=== PATIENT | female | born 1945 | race Caucasian/White ===

== ENCOUNTER 2016-03-30 12:59 | Emergency (ER) | payer MEDICARE, OTHER ==
[2016-03-30 13:27] VITALS: TEMP 97.9
--- NOTE | 2016-03-30 13:40 | ED.PDOC ---
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,no history of fall but felt weak on both legs feels like brick tied around his legs,no dysarthria Timing/Duration: 1-3 hours Severity: moderate Improving Factors: nothing Worsening Factors: nothing Associated Symptoms: other - dizziness,disorientation,feels like passing out Allergies/Adverse Reactions: Allergies NO KNOWN ALLERGY Allergy (Verified 03/30/16 13:25) Home Medications: Ambulatory Orders Atorvastatin Calcium [Lipitor] 10 mg PO DAILY 01/13/14 Celecoxib [Celebrex] 200 mg PO DAILY 01/13/14 Docusate Sodium [Colace] 100 mg PO BID 01/13/14 Baclofen 10 mg PO Q8H PRN #20 tab 08/23/15 Lisinopril 10 mg PO BEDTIME 08/23/15 Metoprolol Succinate [Metoprolol Succinate ER] 100 mg PO DAILY 08/23/15 Aspirin [Baby Aspirin] 81 mg PO DAILY #0 chwtab 02/10/16 Review of Systems - Review of Systems Constitutional: States: no symptoms reported EENTM: States: blurred vision Respiratory: States: no symptoms reported Cardiology: States: no symptoms reported Gastrointestinal/Abdominal: States: no symptoms reported Genitourinary: States: no symptoms reported Musculoskeletal: States: no symptoms reported Skin: States: no symptoms reported Neurological: States: see HPI Endocrine: States: no symptoms reported Hematologic/Lymphatic: States: no symptoms reported Past Medical History (General) - Patient Medical History Hx Seizures: No Hx Stroke: No Hx Dementia: No Hx Asthma: Yes Hx of COPD: No Hx Cardiac Disorders: No Hx Congestive Heart Failure: No Hx Pacemaker: No Hx Hypertension: Yes Hx Thyroid Disease: No Hx Diabetes: No Hx Gastroesophageal Reflux: No Hx Renal Disease: No Hx Cancer: No Hx of HIV: No Hx Hepatitis C: No Hx MRSA: No Other Surgeries:: - Vaccination History Hx Tetanus, Diphtheria Vaccination: No Hx Influenza Vaccination: Yes - 2016 Hx Pneumococcal Vaccination: No - Social History Hx Tobacco Use: No Hx Alcohol Use: No Hx Substance Use: No Hx Substance Use Treatment: No Hx Depression: No Hx Physical Abuse: No Hx Emotional Abuse: No - Activities of Daily Living Patient Lives Alone: No - lives with daughter Grooming Ability: Independent Eating (Feeding) Ability: Independent Toileting Ability: Independent - Female History Patient is a Female of Child Bearing Age (10 -59 yrs old): No Patient : No Family Medical History - Family History Daughter Living Status: Still Living Hx Family Asthma: No Hx Family Congestive Heart Failure: No Hx Family Hypertension: Yes Hx Family Stroke: No Hx Cardiac Disease: No Hx Family Diabetes: No Hx Family Cancer: Yes - liver both brothers Hx Family;Other: LEWY BODY DEMENTIA Physical Exam - Physical Exam General Appearance: Alert, Anxious, No apparent distress Eye Exam: bilateral normal Ears, Nose, Throat: hearing grossly normal, normal ENT inspection, normal pharynx Neck: non-tender, full range of motion, supple, normal inspection Respiratory: chest non-tender, lungs clear, normal breath sounds, no respiratory distress Cardiovascular/Chest: normal peripheral pulses, regular rate, rhythm, no edema, no gallop, no JVD, no murmur Peripheral Pulses: radial,right: 2+, radial,left: 2+ Gastrointestinal/Abdominal: normal bowel sounds, non tender, soft, no organomegaly, no pulsatile mass Back Exam: normal inspection, no CVA tenderness, no vertebral tenderness Extremity: non-tender, normal inspection, no pedal edema Neurologic: alert, motor weakness - left lower extremity 3/5,right lower extremity 4/5 pronator drift negative, sensory deficit - none, disoriented x 3 - to place does not know where he is,time,date, other - Romberg test done after re-exam and was negative DTR: 2+: Patellar, left, Patellar, right Skin Exam: normal color, warm/dry Lymphatic: no adenopathy Progress - Progress Progress: 03/30/16 15:51 She feels better just got scared since one of her sister recently of lewy body dementia,patient knows where she is,knows date and place 03/30/16 16:51 discuss with neurologist suggested ct angio or mri angio to be done as outpatient 03/30/16 17:34 [place] talked to patient that she can be followed up out patient 03/30/16 17:36 Patient stable more alert ,no weakness,speech fluent ,no facial weakness - Results/Orders Results/Orders: 03/30/16 13:32 EKG Assessment ONCE 03/30/16 13:45 EKG STAT Laboratory Results WBC 6.7 K/mm3 (4.8-10.8) 03/30/16 13:40 RBC 5.06 M/mm3 (4.20-5.40) 03/30/16 13:40 Hgb 12.6 gm/dL (12.0-16.0) 03/30/16 13:40 Hct 38.9 % (36.0-47.0) 03/30/16 13:40 MCV 77.0 fl (81.0-99.0) L 03/30/16 13:40 MCH 25.0 pg (27.0-31.0) L 03/30/16 13:40 MCHC 32.5 g/dL (33.0-37.0) L 03/30/16 13:40 RDW 15.8 % (11.5-14.5) H 03/30/16 13:40 Plt Count 245 K/mm3 (130-400) 03/30/16 13:40 MPV 9.1 fl (7.40-10.4) 03/30/16 13:40 Absolute Neuts (auto) 4.00 K/uL (1.8-6.8) 03/30/16 13:40 Absolute Lymphs (auto) 1.60 K/uL (1.0-3.4) 03/30/16 13:40 Absolute Monos (auto) 0.70 K/uL (0.2-0.8) 03/30/16 13:40 Absolute Eos (auto) 0.20 K/uL (0.0-0.4) 03/30/16 13:40 Absolute Basos (auto) 0.10 K/uL (0.0-0.1) 03/30/16 13:40 Neutrophils % 60.0 % (42.0-78.0) 03/30/16 13:40 Lymphocytes % 24.0 % (20.0-50.0) 03/30/16 13:40 Monocytes % 11.2 % (2.0-9.0) H 03/30/16 13:40 Eosinophils % 3.4 % (1.0-5.0) 03/30/16 13:40 Basophils % 1.4 % (0.0-2.0) 03/30/16 13:40 PT 10.8 SECONDS (9.4-12.5) 03/30/16 13:40 INR 0.950 03/30/16 13:40 PTT (SP) 30.3 SECONDS (25.1-36.5) 03/30/16 13:40 Sodium 141 mmol/L (135-145) 03/30/16 13:40 Potassium 4.0 mmol/L (3.6-5.0) 03/30/16 13:40 Chloride 107 mmol/L (101-111) 03/30/16 13:40 Carbon Dioxide 25 mmol/L (-31) 03/30/16 13:40 Anion Gap 13.0 (12-18) 03/30/16 13:40 BUN 15 mg/dL (7-18) 03/30/16 13:40 Creatinine 0.95 mg/dL (0.6-1.3) 03/30/16 13:40 BUN/Creatinine Ratio 15.8 (10-20) 03/30/16 13:40 POC Glucose 84 mg/dL (70-105) 03/30/16 13:31 Random Glucose 111 mg/dL (70-105) H 03/30/16 13:40 Serum Osmolality 282.8 mOsm/L (275-295) 03/30/16 13:40 Calcium 9.4 mg/dL (8.4-10.2) 03/30/16 13:40 Magnesium 2.1 mg/dL (1.8-2.5) 03/30/16 13:40 Total Bilirubin 0.8 mg/dL (0.2-1.0) 03/30/16 13:40 Direct Bilirubin 0.1 mg/dL (0-0.2) 03/30/16 13:40 Indirect Bilirubin 0.7 mg/dL (0.2-0.8) 03/30/16 13:40 AST 25 IU/L (10-42) 03/30/16 13:40 ALT 19 IU/L (10-60) 03/30/16 13:40 Alkaline Phosphatase 151 IU/L (42-121) H 03/30/16 13:40 Creatine Kinase 123 IU/L (26-140) 03/30/16 13:40 CK-MB (CK-2) 3.2 ng/mL (0.0-4.4) 03/30/16 13:40 CK-MB (CK-2) % Not Reportable 03/30/16 13:40 Troponin I 0.02 ng/mL (0.01-0.05) 03/30/16 13:40 Serum Total Protein 7.9 gm/dL (6.4-8.2) 03/30/16 13:40 Albumin 4.2 g/dl (3.2-5.5) 03/30/16 13:40 TSH 6.08 uIU/mL (0.34-5.60) H 03/30/16 13:40 Urine Color Yellow (Yellow) 03/30/16 13:45 Urine Appearance Clear (Clear) 03/30/16 13:45 Urine pH 8.5 (4.5-7.8) H 03/30/16 13:45 Ur Specific [place] 1.015 (1.005-1.030) 03/30/16 13:45 Urine Protein Negative mg/dL 03/30/16 13:45 Urine Glucose (UA) Negative mg/dL (Negative) 03/30/16 13:45 Urine Ketones Negative mg/dL (NEGATIVE) 03/30/16 13:45 Urine Blood Negative (Negative) 03/30/16 13:45 Urine Nitrite Negative 03/30/16 13:45 Urine Bilirubin Negative (NEGATIVE) 03/30/16 13:45 Urine Urobilinogen 0.2 mg/dL (0.2-1.0) 03/30/16 13:45 Ur Leukocyte Esterase Negative (Negative) 03/30/16 13:45 Urine RBC 0 /hpf 03/30/16 13:45 Urine WBC 0 /hpf 03/30/16 13:45 Ur Epithelial Cells 0-1 /hpf 03/30/16 13:45 Urine Bacteria 0 03/30/16 13:45 Urine Opiates Screen Negative ng/mL (1999) 03/30/16 13:40 Urine Barbiturates Negative ng/mL (200) 03/30/16 13:40 Ur Phencyclidine Scrn Negative ng/mL (25) 03/30/16 13:40 U Amphetamin/Meth Scrn Negative ng/mL (1000) 03/30/16 13:40 U Benzodiazepines Scrn Negative ng/mL (200) 03/30/16 13:40 U Cocaine Metab Screen Negative ng/mL (300) 03/30/16 13:40 U Cannabinoids Screen Negative ng/mL (50) 03/30/16 13:40 CT HEAD w/o contrast-no acute infarct or hemorrhage Departure - Departure Clinical Impression: Near syncope, Hypertension, essential Time of Disposition: 17:34 Disposition: Discharge to Home or Self Care Departure Forms: ED Discharge - Pt. Copy, Patient Portal Self Enrollment Referrals: Pawan Peña MD [Primary Care Provider] - 1-2 Weeks Home Medications: Ambulatory Orders Atorvastatin Calcium [Lipitor] 10 mg PO DAILY 01/13/14 Celecoxib [Celebrex] 200 mg PO DAILY 01/13/14 Docusate Sodium [Colace] 100 mg PO BID 01/13/14 Baclofen 10 mg PO Q8H PRN #20 tab 08/23/15 Lisinopril 10 mg PO BEDTIME 08/23/15 Metoprolol Succinate [Metoprolol Succinate ER] 100 mg PO DAILY 08/23/15 Aspirin [Baby Aspirin] 81 mg PO DAILY #0 chwtab 02/10/16 Additional Instructions: RETURN TO EMERGENCY ROOM NEEDED;INCREASE LISINOPRIL 20 mg po at bedtime; INCREASE LIPITOR 20 mg at bedtime follow up with primary MD 04/01/16 patient to call for appt.
--- NOTE | 2016-03-30 14:06 | RAD ---
EXAM DESCRIPTION: XR CHEST 2 VIEWS CLINICAL HISTORY: 71 y/o F, pain COMPARISON: 02/09/2016. TECHNIQUE: Two views of the chest. FINDINGS: The lungs are clear. The heart is at the upper limit of normal in size. There is no pneumothorax or pleural effusion. There is no acute fracture. IMPRESSION: No acute cardiopulmonary abnormality. Electronically signed by: Carlos Eduardo Reina MD 03/30/2016 14:05
--- NOTE | 2016-03-30 14:34 | CT ---
EXAM DESCRIPTION: CT HEAD WITHOUT IV CONTRAST CLINICAL HISTORY: 71 y/o F, near syncope COMPARISON: 02/09/2016. TECHNIQUE: Axial CT images of the brain were obtained without contrast. DLP 773. FINDINGS: There is no acute infarct, hemorrhage, mass, edema, hydrocephalus, or extra-axial fluid collection. The paranasal sinuses and mastoid air cells are clear. There is no acute fracture. IMPRESSION: No acute intracranial abnormality. Electronically signed by: Carlos Eduardo Reina MD 03/30/2016 14:33
[2016-03-30] MEDS: LABETALOL INJ 5 MG/ML VIAL IV ONE ×2 (16:39→16:42)
[2016-03-30 18:10] VITALS: BP 121/61; O2SAT 97
== END 2016-03-30 17:50 | disposition home or self-care (01) ==
LOC: ER 12:59
DX: R55 Syncope and collapse (principal); I10 Essential (primary) hypertension; J45.909 Unspecified asthma, uncomplicated; Z79.899 Other long term (current) drug therapy; Z79.82 Long term (current) use of aspirin
CPT/HCPCS: 70450; 71020; 80048; 80076; 81001; 82550; 82553; 82948; 84443; 84484; 85025; 85610; 85730; 93005; G0479

== ENCOUNTER → 2016-04-01 | Outpatient (CLI) | payer MEDICARE, OTHER | LOC: GMAM 18:45 | PROVIDERS: ATTEND Family Medicine | DX: R94.6 Abnormal results of thyroid function studies (principal) ==

== ENCOUNTER 2016-04-26 15:10 | Emergency (ER) | payer MEDICARE, OTHER ==
--- NOTE | 2016-04-26 15:37 | ED.PDOC ---
History of Present Illness - General Chief Complaint: Syncope/Near Syncope Stated Complaint: passed out Time Seen by Provider: 04/26/16 15:30 Source: patient Additional Information: STATES SHE WOKE UP ON GROUND ON HER RIGHT SIDE. NO C/O'S, STATES SHE DID NOT HURT HERSELF. WAS SEEN FOR SAME 2 MONTHS AGO. SEEN BY NEUROLOGY WITH W/U INCLUDING EEG. - History of Present Illness Timing/Duration: unsure Severity: moderate Improving Factors: nothing Worsening Factors: nothing Associated Symptoms: denies symptoms Allergies/Adverse Reactions: Allergies NO KNOWN ALLERGY Allergy (Verified 04/26/16 15:28) Home Medications: Ambulatory Orders Atorvastatin Calcium [Lipitor] 10 mg PO DAILY 01/13/14 Celecoxib [Celebrex] 200 mg PO DAILY 01/13/14 Docusate Sodium [Colace] 100 mg PO BID 01/13/14 Lisinopril 10 mg PO BEDTIME 08/23/15 Metoprolol Succinate [Metoprolol Succinate ER] 100 mg PO DAILY 08/23/15 Aspirin [Baby Aspirin] 81 mg PO DAILY #0 chwtab 02/10/16 Levetiracetam [Keppra] 500 mg PO BEDTIME 04/26/16 Meclizine HCl 12.5 mg PO BID PRN 04/26/16 Review of Systems - Review of Systems Constitutional: States: no symptoms reported. Denies: chills, fever EENTM: Denies: eye pain, ear pain, throat pain Respiratory: Denies: cough, short of breath, wheezing Cardiology: Denies: chest pain, palpitations Gastrointestinal/Abdominal: Denies: abdominal pain, nausea, vomiting Musculoskeletal: Denies: back pain, neck pain Skin: Denies: change in color, rash Neurological: Denies: headache, numbness, paresthesia, weakness Endocrine: States: no symptoms reported Hematologic/Lymphatic: States: no symptoms reported Past Medical History (General) - Patient Medical History Hx Seizures: No Hx Stroke: No Hx Dementia: No Hx Asthma: Yes Hx of COPD: No Hx Cardiac Disorders: No Hx Congestive Heart Failure: No Hx Pacemaker: No Hx Hypertension: Yes Hx Thyroid Disease: No Hx Diabetes: No Hx Gastroesophageal Reflux: No Hx Renal Disease: No Hx Cancer: No Hx of HIV: No Hx Hepatitis C: No Hx MRSA: No - Vaccination History Hx Tetanus, Diphtheria Vaccination: No Hx Influenza Vaccination: Yes - 2016 Hx Pneumococcal Vaccination: No - Social History Hx Tobacco Use: No Hx Alcohol Use: No Hx Substance Use: No Hx Substance Use Treatment: No Hx Depression: No Hx Physical Abuse: No Hx Emotional Abuse: No - Female History Patient : No Family Medical History - Family History Daughter Living Status: Still Living Hx Family Asthma: No Hx Family Congestive Heart Failure: No Hx Family Hypertension: Yes Hx Family Stroke: No Hx Cardiac Disease: No Hx Family Diabetes: No Hx Family Cancer: Yes - liver, both brothers Hx Family;Other: Alzheimer's DEMENTIA Physical Exam - Physical Exam General Appearance: Alert, Comfortable, No apparent distress Eye Exam: bilateral normal Ears, Nose, Throat: normal ENT inspection, normal pharynx Neck: non-tender, full range of motion, supple, normal inspection Respiratory: lungs clear, normal breath sounds, no respiratory distress Cardiovascular/Chest: regular rate, rhythm, no murmur Gastrointestinal/Abdominal: normal bowel sounds, non tender, soft, no organomegaly Back Exam: normal inspection, no CVA tenderness, no vertebral tenderness Neurologic: neuroscientist II-XII nml as tested, no motor/sensory deficits, alert, normal mood/affect, oriented x 3 Skin Exam: normal color, warm/dry Lymphatic: no adenopathy Progress - Progress Progress: 04/26/16 19:02 TILT NEG, PT HAS BEEN STABLE. - EKG/XRAY/CT EKG: Sinus - RATE 71, NL AXIS, NL INTERVALS, NO ST CHANGES. NO OLD FOR COMPARISON Departure - Departure Clinical Impression: Syncope and collapse Hypertension Qualifiers: Hypertension type: essential hypertension Qualifier Code: (I10) Essential ( primary) hypertension Time of Disposition: 19:04 Disposition: Discharge to Home or Self Care Condition: Good Departure Forms: ED Discharge - Pt. Copy, Patient Portal Self Enrollment Instructions: DI for Syncope in Adults (Fainting) Home Medications: Ambulatory Orders Atorvastatin Calcium [Lipitor] 10 mg PO DAILY 01/13/14 Celecoxib [Celebrex] 200 mg PO DAILY 01/13/14 Docusate Sodium [Colace] 100 mg PO BID 01/13/14 Lisinopril 10 mg PO BEDTIME 08/23/15 Metoprolol Succinate [Metoprolol Succinate ER] 100 mg PO DAILY 08/23/15 Aspirin [Baby Aspirin] 81 mg PO DAILY #0 chwtab 02/10/16 Levetiracetam [Keppra] 500 mg PO BEDTIME 04/26/16 Meclizine HCl 12.5 mg PO BID PRN 04/26/16 Additional Instructions: DRINK PLENTY OF FLUIDS, REST THIS , NOTIFY YOUR DOCTOR (GOLDIE) FRIDAY, RETURN TO ER FOR PROBLEMS/CONCERNS.
[2016-04-26 19:51] VITALS: BP 157/89; TEMP 98.1; O2SAT 100
== END 2016-04-26 19:20 | disposition home or self-care (01) ==
LOC: ER 15:10
DX: R55 Syncope and collapse (principal); I10 Essential (primary) hypertension; J45.909 Unspecified asthma, uncomplicated; Z79.899 Other long term (current) drug therapy; Z79.82 Long term (current) use of aspirin

== ENCOUNTER 2016-06-06 14:19 | Emergency (ER) | payer MEDICARE, OTHER ==
[2016-06-06] MEDS ORDERED: ASPIRIN (CHEWABLE) 81 MG TAB PO ONE (14:33)
--- NOTE | 2016-06-06 14:42 | ED.PDOC ---
History of Present Illness - General Chief Complaint: Chest Pain/NE Stated Complaint: chest pain Time Seen by Provider: 06/06/16 14:32 Source: patient, RN notes reviewed, Vital Signs reviewed Exam Limitations: no limitations - History of Present Illness Initial Comments: Patient reports intermittent, substernal chest pain that started ~3.5 hours ago. Each episode only lasts a few seconds. No radiation, diaphoresis, SOB or nausea with pain. She has had episodes in the past but just thought it was indigestion. Has not been seen for chest pain or cardiac issues. She is currently pain free so will hold off on NTG but still give and additional 243mg of aspirin. Timing/Duration: 1-3 hours Severity/Quality: mild, dull Location: substernal Chest Pain Radiation: no radiation Activities at Onset: rest Prior Chest Pain/Cardiac Workup: no prior cardiac workup Worsening Factors: nothing Nitro Today/Relief: no nitro taken today Aspirin Treatment Today: 81 mg x 1 Associated Symptoms: denies symptoms Allergies/Adverse Reactions: Allergies NO KNOWN ALLERGY Allergy (Verified 04/26/16 15:28) Home Medications: Ambulatory Orders Atorvastatin Calcium [Lipitor] 10 mg PO DAILY 01/13/14 Celecoxib [Celebrex] 200 mg PO DAILY 01/13/14 Docusate Sodium [Colace] 100 mg PO BID 01/13/14 Lisinopril 10 mg PO BEDTIME 08/23/15 Metoprolol Succinate [Metoprolol Succinate ER] 100 mg PO DAILY 08/23/15 Aspirin [Baby Aspirin] 81 mg PO DAILY #0 chwtab 02/10/16 Levetiracetam [Keppra] 500 mg PO BEDTIME 04/26/16 Meclizine HCl 12.5 mg PO BID PRN 04/26/16 Review of Systems - Review of Systems Constitutional: States: no symptoms reported. Denies: chills, diaphoresis, fever, malaise, weakness EENTM: States: no symptoms reported Respiratory: States: no symptoms reported. Denies: cough, short of breath Cardiology: States: chest pain. Denies: edema, palpitations, syncope Gastrointestinal/Abdominal: States: no symptoms reported. Denies: abdominal pain, nausea, vomiting Genitourinary: States: no symptoms reported Musculoskeletal: States: no symptoms reported Skin: States: no symptoms reported Neurological: States: no symptoms reported. Denies: headache Endocrine: States: no symptoms reported Hematologic/Lymphatic: States: no symptoms reported Past Medical History (General) - Patient Medical History Hx Seizures: No Hx Stroke: No Hx Dementia: No Hx Asthma: Yes Hx of COPD: No Hx Cardiac Disorders: No Hx Congestive Heart Failure: No Hx Pacemaker: No Hx Hypertension: Yes Hx Thyroid Disease: No Hx Diabetes: No Hx Gastroesophageal Reflux: No Hx Renal Disease: No Hx Cancer: No Hx of HIV: No Hx Hepatitis C: No Hx MRSA: No - Vaccination History Hx Tetanus, Diphtheria Vaccination: No Hx Influenza Vaccination: Yes - 2016 Hx Pneumococcal Vaccination: No - Social History Hx Tobacco Use: No Hx Alcohol Use: No Hx Substance Use: No Hx Substance Use Treatment: No Hx Depression: No Hx Physical Abuse: No Hx Emotional Abuse: No - Female History Patient : No Family Medical History - Family History Daughter Living Status: Still Living Hx Family Asthma: No Hx Family Congestive Heart Failure: No Hx Family Hypertension: Yes Hx Family Stroke: No Hx Cardiac Disease: No Hx Family Diabetes: No Hx Family Cancer: Yes - liver, both brothers Hx Family;Other: Alzheimer's DEMENTIA Physical Exam - Physical Exam General Appearance: Alert, Comfortable, No apparent distress, Well Developed, Well Groomed, Well Hydrated, Well Nourished Neck: non-tender, full range of motion, supple, normal inspection Respiratory: chest non-tender, lungs clear, normal breath sounds, no respiratory distress, no accessory muscle use Cardiovascular/Chest: normal peripheral pulses, regular rate, rhythm, no edema, no gallop, no JVD, no murmur Peripheral Pulses: posterior tibialis,right: 2+, posterior tibialis,left: 2+ Gastrointestinal/Abdominal: normal bowel sounds, non tender, soft, no organomegaly, no pulsatile mass Extremity: normal range of motion, non-tender, normal inspection, no pedal edema , no calf tenderness Neurologic: no motor/sensory deficits, alert, normal mood/affect, oriented x 3 Skin Exam: normal color Lymphatic: no adenopathy Comments: Vital Signs - 24 hr 06/06/16 06/06/16 14:25 15:15 Temperature 97.0 F L Pulse Rate [RA] 60 60 Respiratory 20 20 Rate Blood Pressure 131/64 131/71 [RIGHT BRACHIAL ] O2 Sat by Pulse 95 96 Oximetry Progress - Progress Progress: 06/06/16 15:40 Initial cardiac workup is normal. Will plan to recheck cardiac enzymes in 2 hours. If normal will d/c home with cardiology follow up. Patient agreeable with plan. 06/06/16 17:26 Second set of cardiac enzymes are normal. Patient has appt with Dr. Rodriguez, Sales Enablement Analyst, on June 27 but advised that she call clinic tomorrow and let them know she was here in the ER for chest pain and maybe they will get her in sooner. - Results/Orders Results/Orders: Laboratory Tests 06/06/16 06/06/16 14:45 16:55 WBC 7.2 RBC 4.77 Hgb 11.9 L Hct 36.6 MCV 76.7 L MCH 24.9 L MCHC 32.6 L RDW 17.0 H Plt Count 224 MPV 8.4 Absolute Neuts (auto) 4.10 Absolute Lymphs (auto) 2.00 Absolute Monos (auto) 0.70 Absolute Eos (auto) 0.30 Absolute Basos (auto) 0.10 Neutrophils % 57.3 Lymphocytes % 27.7 Monocytes % 9.2 H Eosinophils % 4.8 Basophils % 1.0 D-Dimer, Quantitative < 230 Sodium 139 Potassium 4.3 Chloride 106 Carbon Dioxide 27 Anion Gap 10.3 L BUN 15 Creatinine 0.85 BUN/Creatinine Ratio 17.6 Random Glucose 97 Serum Osmolality 278.3 Calcium 9.0 Total Bilirubin 0.9 AST 16 ALT 16 Alkaline Phosphatase 138 H Creatine Kinase 74 68 CK-MB (CK-2) 1.5 1.4 CK-MB (CK-2) % Not Reportable Not Reportable Troponin I < 0.02 < 0.02 Serum Total Protein 7.0 Albumin 3.6 Globulin 3.4 Albumin/Globulin Ratio 1.1 - EKG/XRAY/CT EKG: Sinus, no ST T wave changes Comments: occ PVC's, Rate 60 bpm XRAY: chest - Mild cardiomegaly, o/w nl Departure - Departure Clinical Impression: Atypical chest pain Time of Disposition: 17:28 Disposition: Discharge to Home or Self Care Condition: Good Departure Forms: ED Discharge - Pt. Copy, Patient Portal Self Enrollment Instructions: DI for Atypical Chest Pain Diet: resume usual diet Activity: increase activity as tolerated Referrals: Pawan Peña MD [Primary Care Provider] - 1-2 Weeks DARIAN RODRIGUEZ [Referring] - 1-2 Weeks Home Medications: Ambulatory Orders Atorvastatin Calcium [Lipitor] 10 mg PO DAILY 01/13/14 Celecoxib [Celebrex] 200 mg PO DAILY 01/13/14 Docusate Sodium [Colace] 100 mg PO BID 01/13/14 Lisinopril 10 mg PO BEDTIME 08/23/15 Metoprolol Succinate [Metoprolol Succinate ER] 100 mg PO DAILY 08/23/15 Aspirin [Baby Aspirin] 81 mg PO DAILY #0 chwtab 02/10/16 Levetiracetam [Keppra] 500 mg PO BEDTIME 04/26/16 Meclizine HCl 12.5 mg PO BID PRN 04/26/16
--- NOTE | 2016-06-06 14:55 | RAD ---
EXAM DESCRIPTION: Chest,1 View CLINICAL HISTORY: 71 years Female, chest pain COMPARISON: March 30, 2016 TECHNIQUE: AP portable chest. FINDINGS: Mild cardiomegaly without failure. Lungs are clear. No effusion. IMPRESSION: Mild cardiomegaly Electronically signed by: Kartik Alvarez MD 06/06/2016 2:54 PM CDT
[2016-06-06 15:00] VITALS: TEMP 97
[2016-06-06 18:07] VITALS: BP 129/57; O2SAT 96
== END 2016-06-06 17:40 | disposition home or self-care (01) ==
LOC: ER 14:19
DX: R07.89 Other chest pain (principal); Z79.899 Other long term (current) drug therapy; Z79.82 Long term (current) use of aspirin; J45.909 Unspecified asthma, uncomplicated; I10 Essential (primary) hypertension

== ENCOUNTER → 2016-06-06 | Outpatient (CLI) | payer MEDICARE, OTHER | END | disposition home or self-care (01) | LOC: LAB.O 15:18 | PROVIDERS: ATTEND Psychiatry & Neurology Neurology | DX: G40.209 Localization-related (focal) (partial) symptomatic epilepsy and epileptic syndromes with complex partial seizures, not intractable, without status epilepticus (principal) ==

== ENCOUNTER → 2016-06-20 | Outpatient (CLI) | payer MEDICARE, OTHER | END | disposition home or self-care (01) | LOC: GMAM 14:11 | PROVIDERS: ATTEND Family Medicine | DX: N64.89 Other specified disorders of breast (principal) ==

== ENCOUNTER → 2016-07-04 | Outpatient (CLI) | payer MEDICARE, OTHER ==
--- NOTE | 2016-07-04 17:13 | MAM ---
History: Left bloody nipple discharge. DATE OF SERVICE: 07/04/2016 Services provided: Bilateral full field digital diagnostic mammography. CAD, the images were reviewed with R2 computer aided detection. Directed Limited left breast sonography FINDINGS: Routine and true lateral views are compared with 2013 exam. Scattered glandular parenchymal pattern. No dominant mass, architectural distortion or clustered microcalcification. Bloody nipple discharge is apparent from a solitary duct in the left breast at approximately the 8:00 portion. Sonography is performed. With a rolled nipple there is a focal region of increased vascularity near the tip of the nipple. It is difficult to discern the small structure from the adjacent nipple tissue and estimated transverse diameter of approximately 6 mm. There appears to be a solitary feeding vessel, a finding routinely associated with papillomas although DCIS is in the differential. IMPRESSION: Suspicious exam. Left nipple bloody discharge with 6 mm questioned nipple papilloma. Excision is recommended. Recommendation: Surgical consultation. The findings and recommendations were discussed with the patient today. BIRAD CATEGORY: 4 SUSPICIOUS FINDINGS Electronically signed by: Geetha Laura MD 07/04/2016 5:13 PM CDT
== END | disposition home or self-care (01) ==
LOC: MAMMO 16:18
PROVIDERS: ATTEND Family Medicine
DX: N64.89 Other specified disorders of breast (principal)

== ENCOUNTER → 2016-07-08 | Outpatient (CLI) | payer MEDICARE, OTHER | LOC: GMAM 14:42 | PROVIDERS: ATTEND Family Medicine | DX: E55.9 Vitamin D deficiency, unspecified (principal); D64.9 Anemia, unspecified; M62.81 Muscle weakness (generalized); R53.83 Other fatigue ==

== ENCOUNTER 2016-07-15 08:00 | Day surgery (SDC) | payer MEDICARE, OTHER ==
--- NOTE | 2016-07-10 15:12 | RAD ---
Study: Frontal and Lateral Views of the Chest. Indication: Pre Op for Surg 07/15/16 Comparison: June 06, 2016. Impression: Mild cardiomegaly with minimal interstitial edema. No overt failure. Lungs hyperexpanded. Osteopenia. If this is a new finding, DEXA scan recommended as well as evaluation for possible osteoporosis treatment. Degenerative changes of the spine noted. Electronically signed by: Fam Hathaway MD 07/10/2016 3:11 PM CDT
[2016-07-15] MEDS ORDERED: LIDOCAINE 1% 50 ML VIAL INJ ONE (08:23)
[2016-07-15] MEDS ORDERED: SODIUM BICARBONATE VIAL 50 MEQ/50 ML VIAL ONE (08:23)
[2016-07-15] MEDS ORDERED: LACTATED RINGERS 1,000 ML ONE (08:29)
[2016-07-15] MEDS ORDERED: METOPROLOL SUCCINATE XL 100 MG TAB PO ONE (08:45)
[2016-07-15] MEDS ORDERED: fentaNYL CITRATE INJ 50 MCG/ML AMP ONE (08:57)
[2016-07-15] MEDS ORDERED: MIDAZOLAM INJ 5 MG/5 ML VIAL ONE (08:57)
[2016-07-15 10:47] VITALS: BP 145/83; TEMP 97.4; O2SAT 99
[2016-07-15] MEDS ORDERED: raNITIdine HCL INJ 25 MG/ML VIAL IV ONE (12:00)
[2016-07-15] MEDS ORDERED: PROPOFOL 200 MG/20 ML VIAL IV ONE (12:00)
[2016-07-15] MEDS ORDERED: LIDOCAINE 1% 10 ML VIAL INJ ONE (12:00)
--- NOTE | 2016-07-15 13:26 | OP ---
DATE OF PROCEDURE: 07/15/16 PREOPERATIVE DIAGNOSIS: 1. Left breast discharge with abnormal mammogram. POSTOPERATIVE DIAGNOSIS: 1. Left breast discharge with abnormal mammogram. PROCEDURE: 1. Exploration, left breast duct and excision of subareolar mass. SURGEON: Braxton Santos MD. HANGAR ATTENDANT: None. ANESTHESIA: Local infiltration of 1% lidocaine with bicarb and IV sedation by Anesthesia. INDICATION: The patient is a 71-year-old female who had noticed a sometimes bloody discharge from her left nipple at approximately the 8 o'clock position. Workup revealed a subareolar mass. She was brought to the Surgical Suite today for exploration of the duct and indicated procedures. FINDINGS: There was a mass intimately associated with the areola. This was excised with some of the overlying skin. Pathology is pending. No other mass was identified. PROCEDURE: After adequate sedation was performed, the patient was prepped and draped in the usual sterile manner. Surgical time-out was taken. A periareolar incision was then designed with a marking pen, then local infiltration of anesthesia was obtained. The skin was incised with a sharp knife and dissection was carried down through the skin and subcutaneous tissue using electrocautery. The areola was then elevated medially until the mass was identified. It was then excised circumferentially using electrocautery and sharp dissection which did include taking some of the skin of the nipple. The specimen was excised and sent for pathologic evaluation. The wound was then irrigated with saline. Hemostasis was obtained with electrocautery. When hemostasis was noted to be adequate, the skin of the nipple was reapproximated with interrupted 4-0 Nylon vertical mattress sutures and the skin incision was closed likewise. Sterile pressure dressing was applied. The patient tolerated the procedure well. The patient was taken to the Recovery Room in good and stable condition. Estimated blood loss was less than 25 mL. All sponge, needle and instrument counts were correct. #[id number] [facility]
== END 2016-07-15 10:40 | disposition home or self-care (01) ==
LOC: AMB 08:00
PROVIDERS: ATTEND Surgery
DX: D24.2 Benign neoplasm of left breast (principal); N64.52 Nipple discharge; R92.8 Other abnormal and inconclusive findings on diagnostic imaging of breast; I25.10 Atherosclerotic heart disease of native coronary artery without angina pectoris; I35.1 Nonrheumatic aortic (valve) insufficiency; I10 Essential (primary) hypertension; Z79.82 Long term (current) use of aspirin; Z79.899 Other long term (current) drug therapy
CPT/HCPCS: 00400; 19120; 36415; 71020; 80048; 81001; 87086; 88305; J2250; J2780; J3010; J3490; J7120

== ENCOUNTER 2016-07-24 16:32 | Emergency (ER) | payer MEDICARE, OTHER ==
[2016-07-24 17:01] VITALS: O2SAT 98
[2016-07-24] MEDS ORDERED: SODIUM CHLORIDE 0.9% 1000ML 1,000 ML IVS ONE (18:55)
--- NOTE | 2016-07-24 19:12 | ED.PDOC ---
History of Present Illness - General Chief Complaint: GI Problem Stated Complaint: diarrhea Time Seen by Provider: 07/24/16 17:50 Source: patient Exam Limitations: no limitations - History of Present Illness Initial Comments: Patient presents with multiple episodes of non-bloody diarrhea since this morning. No N/V. Has been able to take in small amounts of food and water. No similarly sick contacts. No abdomnal pain nor fever. No other complaints. Timing/Duration: other - 10 hours Severity: moderate Improving Factors: nothing Worsening Factors: nothing Associated Symptoms: denies symptoms Allergies/Adverse Reactions: Allergies NO KNOWN ALLERGY Allergy (Verified 07/24/16 17:01) Home Medications: Ambulatory Orders Atorvastatin Calcium [Lipitor] 10 mg PO QPM 01/13/14 Docusate Sodium [Colace] 100 mg PO BID 01/13/14 Lisinopril 10 mg PO DAILY@0700 08/23/15 Metoprolol Succinate [Metoprolol Succinate ER] 100 mg PO DAILY@0700 08/23/15 Aspirin [Baby Aspirin] 81 mg PO DAILY #0 chwtab 02/10/16 Levetiracetam [Keppra] 500 mg PO BID 04/26/16 Meclizine HCl 12.5 mg PO BID PRN 04/26/16 Oxcarbazepine [Trileptal] 150 mg PO BID 07/10/16 Sulfa/Trimeth 800/160 (Ds) Tab [Bactrim DS Tab] 1 ea PO BID #6 tab 07/24/16 Review of Systems - Review of Systems Constitutional: States: no symptoms reported EENTM: States: no symptoms reported Respiratory: States: no symptoms reported Cardiology: States: no symptoms reported Gastrointestinal/Abdominal: States: see HPI Genitourinary: States: no symptoms reported Musculoskeletal: States: no symptoms reported Skin: States: no symptoms reported Neurological: States: no symptoms reported Endocrine: States: no symptoms reported Hematologic/Lymphatic: States: no symptoms reported Past Medical History (General) - Patient Medical History Hx Seizures: Yes Hx Stroke: No Hx Dementia: No Hx Asthma: Yes Hx of COPD: No Hx Cardiac Disorders: No Hx Congestive Heart Failure: No Hx Pacemaker: No Hx Hypertension: Yes Hx Thyroid Disease: No Hx Diabetes: No Hx Gastroesophageal Reflux: No Hx Renal Disease: No Hx Cancer: No Hx of HIV: No Hx Hepatitis C: No Hx MRSA: No Surgical History: other - Vaccination History Hx Tetanus, Diphtheria Vaccination: No Hx Influenza Vaccination: Yes - 2016 Hx Pneumococcal Vaccination: No - Social History Hx Tobacco Use: No Hx Alcohol Use: No Hx Substance Use: No Hx Substance Use Treatment: No Hx Depression: No Hx Physical Abuse: No Hx Emotional Abuse: No - Activities of Daily Living Hospice Agency (if applicable):: None - Female History Patient is a Female of Child Bearing Age (10 -59 yrs old): No Patient : No Family Medical History - Family History Daughter Living Status: Still Living Hx Family Asthma: No Hx Family Congestive Heart Failure: No Hx Family Hypertension: Yes Hx Family Stroke: No Hx Cardiac Disease: No Hx Family Diabetes: No Hx Family Cancer: Yes - liver, both brothers Hx Family;Other: Alzheimer's DEMENTIA Physical Exam - Physical Exam General Appearance: Alert Respiratory: lungs clear Cardiovascular/Chest: regular rate, rhythm Gastrointestinal/Abdominal: normal bowel sounds, non tender, soft Extremity: non-tender, normal inspection, no pedal edema Skin Exam: normal color Lymphatic: no adenopathy Departure - Departure Clinical Impression: Diarrhea, Urinary tract infection Disposition: Discharge to Home or Self Care Condition: Good Departure Forms: ED Discharge - Pt. Copy, Patient Portal Self Enrollment Diet: resume usual diet Activity: increase activity as tolerated Referrals: Pawan Peña MD [Primary Care Provider] - 1-2 Weeks Prescriptions: Sulfa/Trimeth 800/160 (Ds) Tab [Bactrim DS Tab] 1 ea PO BID #6 tab Home Medications: Ambulatory Orders Atorvastatin Calcium [Lipitor] 10 mg PO QPM 01/13/14 Docusate Sodium [Colace] 100 mg PO BID 01/13/14 Lisinopril 10 mg PO DAILY@0700 08/23/15 Metoprolol Succinate [Metoprolol Succinate ER] 100 mg PO DAILY@0700 08/23/15 Aspirin [Baby Aspirin] 81 mg PO DAILY #0 chwtab 02/10/16 Levetiracetam [Keppra] 500 mg PO BID 04/26/16 Meclizine HCl 12.5 mg PO BID PRN 04/26/16 Oxcarbazepine [Trileptal] 150 mg PO BID 07/10/16 Sulfa/Trimeth 800/160 (Ds) Tab [Bactrim DS Tab] 1 ea PO BID #6 tab 07/24/16 Additional Instructions: Increase oral fluids. Take prescription as directed. Follow up with your regular doctor if diarrhea lasts more than 6 days.
[2016-07-24] MEDS ORDERED: ONDANSETRON INJ 4 MG/2 ML VIAL IV ONE (19:22)
[2016-07-24 22:37] VITALS: BP 135/80; TEMP 98.4
== END 2016-07-24 23:05 | disposition home or self-care (01) ==
LOC: ER 16:32
DX: R19.7 Diarrhea, unspecified (principal); N39.0 Urinary tract infection, site not specified; I10 Essential (primary) hypertension; J45.909 Unspecified asthma, uncomplicated; Z79.899 Other long term (current) drug therapy; Z79.82 Long term (current) use of aspirin
CPT/HCPCS: 36415; 80053; 81001; 85025; 87086; J2405; J7030

== ENCOUNTER 2016-07-27 08:59 | Emergency (ER) | payer MEDICARE, OTHER ==
--- NOTE | 2016-07-27 09:13 | ED.PDOC ---
History of Present Illness - General Chief Complaint: General Stated Complaint: feels ill Time Seen by Provider: 07/27/16 09:10 Source: patient, family, other - neighbor Additional Information: Pt lives alone. Her daughter lives nearby and she has a neighbor who she called today for help. Her daughter brought her to the ER 3 days ago. Pt with vague complaints of feeling ill, feeling like she is going to have a "seizure". Per daughter, Pt gets spells about once a month - most recent was 4 days ago. Typically Pt will faint/syncopize. This has been going on for several years. There is no known precipitating factor. She sees a Neurologist (Dr. Larsen) and she is prescribed Keppra and Tileptal. Pt reports diarrhea for the past 3 days, most recent bout was yesterday morning. She took Imodium with good relief for that episode. Pt reports she thinks she may have another bout of diarrhea coming soon. She does have moderate to hyperactive bowel sounds. Pt denies abdominal pain. She does report some sensation of shortness of breath , but she does not appear to be in respiratory distress. I asked patient what her goals were for this ER Visit - she said "I don't know. Make me feel better." - History of Present Illness Timing/Duration: other - 3 to 4 days Severity: moderate Improving Factors: medication - Imodium helped with diarrhea yesterday Worsening Factors: nothing Associated Symptoms: shortness of breath, weakness, other - diarrhea Allergies/Adverse Reactions: Allergies NO KNOWN ALLERGY Allergy (Verified 07/24/16 17:01) Home Medications: Ambulatory Orders Atorvastatin Calcium [Lipitor] 10 mg PO QPM 01/13/14 Docusate Sodium [Colace] 100 mg PO BID 01/13/14 Lisinopril 10 mg PO DAILY@0700 08/23/15 Metoprolol Succinate [Metoprolol Succinate ER] 100 mg PO DAILY@0700 08/23/15 Aspirin [Baby Aspirin] 81 mg PO DAILY #0 chwtab 02/10/16 Levetiracetam [Keppra] 500 mg PO BID 04/26/16 Meclizine HCl 12.5 mg PO BID PRN 04/26/16 Oxcarbazepine [Trileptal] 150 mg PO BID 07/10/16 Sulfa/Trimeth 800/160 (Ds) Tab [Bactrim DS Tab] 1 ea PO BID #6 tab 07/24/16 Review of Systems - Review of Systems Constitutional: States: weakness EENTM: States: no symptoms reported Respiratory: States: short of breath Cardiology: States: no symptoms reported Gastrointestinal/Abdominal: States: see HPI, diarrhea Genitourinary: States: no symptoms reported Musculoskeletal: States: no symptoms reported Skin: States: no symptoms reported Neurological: States: see HPI - - Pt states she feels like she is going to have a seizure Endocrine: States: no symptoms reported Hematologic/Lymphatic: States: no symptoms reported Past Medical History (General) - Patient Medical History Hx Seizures: Yes Hx Stroke: No Hx Dementia: No Hx Asthma: Yes Hx of COPD: No Hx Cardiac Disorders: No Hx Congestive Heart Failure: No Hx Pacemaker: No Hx Hypertension: Yes Hx Thyroid Disease: No Hx Diabetes: No Hx Gastroesophageal Reflux: No Hx Renal Disease: No Hx Cancer: No Hx of HIV: No Hx Hepatitis C: No Hx MRSA: No - Vaccination History Hx Tetanus, Diphtheria Vaccination: No Hx Influenza Vaccination: Yes - 2016 Hx Pneumococcal Vaccination: No - Social History Hx Tobacco Use: No Hx Alcohol Use: No Hx Substance Use: No Hx Substance Use Treatment: No Hx Depression: No Hx Physical Abuse: No Hx Emotional Abuse: No - Female History Patient : No Family Medical History - Family History Daughter Living Status: Still Living Hx Family Asthma: No Hx Family Congestive Heart Failure: No Hx Family Hypertension: Yes Hx Family Stroke: No Hx Cardiac Disease: No Hx Family Diabetes: No Hx Family Cancer: Yes - liver, both brothers Hx Family;Other: Alzheimer's DEMENTIA Physical Exam - Physical Exam General Appearance: Alert, Comfortable - , but a little anxious with history and exam. No anxiety when left alone resting in stretcher., No apparent distress , Obese Eye Exam: bilateral normal Ears, Nose, Throat: hearing grossly normal, normal ENT inspection, normal pharynx Neck: non-tender, full range of motion, supple, normal inspection Respiratory: chest non-tender, lungs clear, normal breath sounds, no respiratory distress, no accessory muscle use Cardiovascular/Chest: normal peripheral pulses, regular rate, rhythm, no edema Gastrointestinal/Abdominal: non tender, soft, abnormal bowel sounds - moderately increased Back Exam: normal inspection, no CVA tenderness Extremity: normal range of motion, non-tender, normal inspection 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 I will assess for electrolyte abnormalities with blood and urine studies and compare with previous studies to assess for interval change. Will treat diarrhea with Imodium and obtain stool studies. 07/27/16 10:21 Pt states she feels better after Imodium. She was not able to give a stool sample. Her urinalysis is potentially suggestive of mild UTI; Urine Culture is pending. - Results/Orders Results/Orders: 07/27/16 09:12 EKG Assessment ONCE 07/27/16 09:15 EKG STAT 07/27/16 09:35 STOOL CULTURE Stat 07/27/16 09:36 CLOSTRIDIUM DIFFICILE AG/TOXIN Stat 07/27/16 09:57 URINE CULTURE W/COLONY COUNT Stat Laboratory Results - last 24 hr 07/27/16 07/27/16 07/27/16 09:27 09:27 09:27 WBC 5.2 RBC 4.65 Hgb 11.8 L Hct 36.0 MCV 77.4 L MCH 25.3 L MCHC 32.7 L RDW 16.5 H Plt Count 219 MPV 8.4 Absolute Neuts (auto) 2.80 Absolute Lymphs (auto) 1.50 Absolute Monos (auto) 0.60 Absolute Eos (auto) 0.30 Absolute Basos (auto) 0.00 Neutrophils % 54.2 Lymphocytes % 28.6 Monocytes % 11.2 H Eosinophils % 5.1 H Basophils % 0.9 D-Dimer, Quantitative Sodium 139 Potassium 3.5 L Chloride 112 H Carbon Dioxide 19 L Anion Gap 11.5 L BUN 14 Creatinine 0.98 BUN/Creatinine Ratio 14.3 Random Glucose 104 Serum Osmolality 278.3 Calcium 8.7 Phosphorus 3.1 Magnesium 1.8 Total Bilirubin 0.5 AST 25 ALT 23 Alkaline Phosphatase 127 H Serum Total Protein 6.9 Albumin 3.5 Globulin 3.4 Albumin/Globulin Ratio 1.0 L TSH 8.74 H Free T4 Free T3 pg/mL Urine Color Urine Appearance Urine pH Ur Specific [place] Urine Protein Urine Glucose (UA) Urine Ketones Urine Blood Urine Nitrite Urine Bilirubin Urine Urobilinogen Ur Leukocyte Esterase Urine RBC Urine WBC Ur Epithelial Cells Urine Bacteria 0507/27/16 07/27/16 09:27 09:57 10:33 WBC RBC Hgb Hct MCV MCH MCHC RDW Plt Count MPV Absolute Neuts (auto) Absolute Lymphs (auto) Absolute Monos (auto) Absolute Eos (auto) Absolute Basos (auto) Neutrophils % Lymphocytes % Monocytes % Eosinophils % Basophils % D-Dimer, Quantitative < 230 Sodium Potassium Chloride Carbon Dioxide Anion Gap BUN Creatinine BUN/Creatinine Ratio Random Glucose Serum Osmolality Calcium Phosphorus Magnesium Total Bilirubin AST ALT Alkaline Phosphatase Serum Total Protein Albumin Globulin Albumin/Globulin Ratio TSH Free T4 0.73 Free T3 pg/mL Urine Color Yellow Urine Appearance Clear Urine pH 5.5 Ur Specific [place] 1.025 Urine Protein Negative Urine Glucose (UA) Negative Urine Ketones Negative Urine Blood Trace-lysed H Urine Nitrite Negative Urine Bilirubin Negative Urine Urobilinogen 0.2 Ur Leukocyte Esterase Small H Urine RBC 0-1 Urine WBC 3-5 H Ur Epithelial Cells 0 Urine Bacteria Rare 07/27/16 10:36 WBC RBC Hgb Hct MCV MCH MCHC RDW Plt Count MPV Absolute Neuts (auto) Absolute Lymphs (auto) Absolute Monos (auto) Absolute Eos (auto) Absolute Basos (auto) Neutrophils % Lymphocytes % Monocytes % Eosinophils % Basophils % D-Dimer, Quantitative Sodium Potassium Chloride Carbon Dioxide Anion Gap BUN Creatinine BUN/Creatinine Ratio Random Glucose Serum Osmolality Calcium Phosphorus Magnesium Total Bilirubin AST ALT Alkaline Phosphatase Serum Total Protein Albumin Globulin Albumin/Globulin Ratio TSH Free T4 Free T3 pg/mL 2.97 Urine Color Urine Appearance Urine pH Ur Specific [place] Urine Protein Urine Glucose (UA) Urine Ketones Urine Blood Urine Nitrite Urine Bilirubin Urine Urobilinogen Ur Leukocyte Esterase Urine RBC Urine WBC Ur Epithelial Cells Urine Bacteria 07/27/16 07/27/16 07/27/16 09:03 09:23 10:24 Temperature 97.0 F L Pulse Rate [ 68 65 61 apical] Respiratory 22 18 16 Rate Blood Pressure 153/86 149/74 135/74 [left brachial] O2 Sat by Pulse 100 100 100 Oximetry 07/27/16 11:00 Temperature Pulse Rate [ 63 apical] Respiratory 18 Rate Blood Pressure 152/77 [left brachial] O2 Sat by Pulse 100 Oximetry - EKG/XRAY/CT EKG: Sinus - NSR 67 bpm, no ST Elevation Departure - Departure Clinical Impression: Urine leukocytes, Diarrhea, Subclinical hypothyroidism Anemia Qualifiers: Anemia type: unspecified type Qualified Code(s): D64.9 - Anemia, unspecified Time of Disposition: 11:30 Disposition: Discharge to Home or Self Care Condition: Fair Departure Forms: ED Discharge - Pt. Copy, Patient Portal Self Enrollment Referrals: Pawan Peña MD [Primary Care Provider] - 1-5 Days Home Medications: Ambulatory Orders Atorvastatin Calcium [Lipitor] 10 mg PO QPM 01/13/14 Docusate Sodium [Colace] 100 mg PO BID 01/13/14 Lisinopril 10 mg PO DAILY@0700 08/23/15 Metoprolol Succinate [Metoprolol Succinate ER] 100 mg PO DAILY@0700 08/23/15 Aspirin [Baby Aspirin] 81 mg PO DAILY #0 chwtab 02/10/16 Levetiracetam [Keppra] 500 mg PO BID 04/26/16 Meclizine HCl 12.5 mg PO BID PRN 04/26/16 Oxcarbazepine [Trileptal] 150 mg PO BID 07/10/16 Sulfa/Trimeth 800/160 (Ds) Tab [Bactrim DS Tab] 1 ea PO BID #6 tab 07/24/16 Additional Instructions: You may benefit from antibiotic. I recommend awaiting the Urine Culture results. Call for results on Friday (07/29/16) and/or make an appointment to see Dr. Peña so he can go over the results with you. Also, discuss the diagnosis of subclinical hypothyroidism with Dr. Peña. Typically, it is not treated unless the TSH is greater than 10 mU/L. Try to collect a stool sample and bring it into the lab. Continue to try and consume green leafy vegetables. Return to ER if condition worsens.
[2016-07-27 09:19] VITALS: TEMP 97
[2016-07-27] MEDS ORDERED: LOPERAMIDE CAP 2 MG CAP PO ONE (09:36)
[2016-07-27 11:34] VITALS: BP 116/72; O2SAT 96
== END 2016-07-27 11:35 | disposition home or self-care (01) ==
LOC: ER 08:59
DX: R19.7 Diarrhea, unspecified (principal); R82.99 Other abnormal findings in urine; E02 Subclinical iodine-deficiency hypothyroidism; D64.9 Anemia, unspecified; G40.909 Epilepsy, unspecified, not intractable, without status epilepticus; J44.9 Chronic obstructive pulmonary disease, unspecified; I10 Essential (primary) hypertension; Z79.899 Other long term (current) drug therapy; Z79.82 Long term (current) use of aspirin

== ENCOUNTER 2016-07-30 13:58 | Emergency (ER) | payer MEDICARE, OTHER ==
--- NOTE | 2016-07-30 14:05 | ED.PDOC ---
History of Present Illness - General Stated Complaint: dizziness Time Seen by Provider: 07/30/16 14:03 Source: patient, RN notes reviewed, EMS notes reviewed Exam Limitations: no limitations - History of Present Illness Initial Comments: Agnes Abdi 71 y/o female with history of hypertension ,sz disorder stated that while she was walking outside to dump her garbage in the dumpster she got lightheaded fell forward but able to brace her fall with both forearms passerby noticed what happened and alerted her neighbor and helped her walk to her house.EMS was called was placed on monitor was found to be bradycardic hr-44 given 2 doses of atropine.Then was brought efren to [facility] ER.No chest pains,no nausea or vomiting. Timing/Duration: 1-3 hours Severity: moderate Improving Factors: nothing Worsening Factors: nothing Associated Symptoms: other - abrasion superficial both forearms Allergies/Adverse Reactions: Allergies NO KNOWN ALLERGY Allergy (Verified 07/30/16 14:12) Home Medications: Ambulatory Orders Atorvastatin Calcium [Lipitor] 10 mg PO QPM 01/13/14 Lisinopril 10 mg PO DAILY@0700 08/23/15 Metoprolol Succinate [Metoprolol Succinate ER] 100 mg PO DAILY@0700 08/23/15 Levetiracetam [Keppra] 500 mg PO BID 04/26/16 Oxcarbazepine [Trileptal] 150 mg PO BID 07/10/16 Aspirin [Donte Low Dose] 81 mg PO DAILY 07/30/16 Ergocalciferol [Vitamin D] 50,000 unit PO WKLY 07/30/16 Review of Systems - Review of Systems Constitutional: States: no symptoms reported EENTM: States: no symptoms reported Respiratory: States: no symptoms reported Cardiology: States: no symptoms reported Gastrointestinal/Abdominal: States: no symptoms reported Genitourinary: States: no symptoms reported Musculoskeletal: States: no symptoms reported Skin: States: see HPI, other - superficial abrasion Neurological: States: seizure - disorder, other - lightheaded Endocrine: States: no symptoms reported Hematologic/Lymphatic: States: no symptoms reported Past Medical History (General) - Patient Medical History Hx Seizures: Yes Hx Stroke: No Hx Dementia: No Hx Asthma: Yes Hx of COPD: No Hx Cardiac Disorders: No Hx Congestive Heart Failure: No Hx Pacemaker: No Hx Hypertension: Yes Hx Thyroid Disease: No Hx Diabetes: No Hx Gastroesophageal Reflux: No Hx Renal Disease: No Hx Cancer: No Hx of HIV: No Hx Hepatitis C: No Hx MRSA: No Surgical History: other - - Vaccination History Hx Tetanus, Diphtheria Vaccination: No Hx Influenza Vaccination: Yes - 2016 Hx Pneumococcal Vaccination: No - Social History Hx Tobacco Use: No Hx Alcohol Use: No Hx Substance Use: No Hx Substance Use Treatment: No Hx Depression: No Hx Physical Abuse: No Hx Emotional Abuse: No - Activities of Daily Living Grooming Ability: Independent Eating (Feeding) Ability: Independent Toileting Ability: Independent - Female History Patient : No Family Medical History - Family History Daughter Living Status: Still Living Hx Family Asthma: No Hx Family Congestive Heart Failure: No Hx Family Hypertension: Yes Hx Family Stroke: No Hx Cardiac Disease: No Hx Family Diabetes: No Hx Family Cancer: Yes - liver, both brothers Hx Family;Other: Alzheimer's DEMENTIA Physical Exam - Physical Exam General Appearance: Alert, No apparent distress, Other - speech fluent Eye Exam: bilateral normal Ears, Nose, Throat: hearing grossly normal, normal ENT inspection, normal pharynx Neck: non-tender, full range of motion, supple Respiratory: chest non-tender, lungs clear, normal breath sounds, no respiratory distress Cardiovascular/Chest: normal peripheral pulses, regular rate, rhythm, no edema, no gallop Peripheral Pulses: radial,right: 2+, radial,left: 2+ Gastrointestinal/Abdominal: normal bowel sounds, non tender, soft, no organomegaly Back Exam: normal inspection, no CVA tenderness, no vertebral tenderness Extremity: normal range of motion, non-tender, normal inspection, no calf tenderness Neurologic: no motor/sensory deficits, alert, normal mood/affect, oriented x 3 Skin Exam: normal color Lymphatic: no adenopathy Progress - Results/Orders Results/Orders: Vital Signs - 8 hr 07/30/16 07/30/16 07/30/16 14:00 14:12 16:28 Temperature 97.8 F Pulse Rate [ 48 L 48 L 47 L pulse ox] Respiratory 16 16 20 Rate Blood Pressure 137/58 110/61 [Right Arm] O2 Sat by Pulse 98 94 L Oximetry Laboratory Results WBC 8.1 K/mm3 (4.8-10.8) 07/30/16 14:25 RBC 4.47 M/mm3 (4.20-5.40) 07/30/16 14:25 Hgb 11.4 gm/dL (12.0-16.0) L 07/30/16 14:25 Hct 34.3 % (36.0-47.0) L 07/30/16 14:25 MCV 76.7 fl (81.0-99.0) L 07/30/16 14:25 MCH 25.5 pg (27.0-31.0) L 07/30/16 14:25 MCHC 33.3 g/dL (33.0-37.0) 07/30/16 14:25 RDW 16.3 % (11.5-14.5) H 07/30/16 14:25 Plt Count 231 K/mm3 (130-400) 07/30/16 14:25 MPV 8.2 fl (7.40-10.4) 07/30/16 14:25 Absolute Neuts (auto) 6.00 K/uL (1.8-6.8) 07/30/16 14:25 Absolute Lymphs (auto) 1.20 K/uL (1.0-3.4) 07/30/16 14:25 Absolute Monos (auto) 0.80 K/uL (0.2-0.8) 07/30/16 14:25 Absolute Eos (auto) 0.10 K/uL (0.0-0.4) 07/30/16 14:25 Absolute Basos (auto) 0.00 K/uL (0.0-0.1) 07/30/16 14:25 Neutrophils % 74.0 % (42.0-78.0) 07/30/16 14:25 Lymphocytes % 15.2 % (20.0-50.0) L 07/30/16 14:25 Monocytes % 9.3 % (2.0-9.0) H 07/30/16 14:25 Eosinophils % 1.0 % (1.0-5.0) 07/30/16 14:25 Basophils % 0.5 % (0.0-2.0) 07/30/16 14:25 PT 11.4 SECONDS (9.4-12.5) 07/30/16 14:25 INR 1.010 07/30/16 14:25 PTT (SP) 27.5 SECONDS (25.1-36.5) 07/30/16 14:25 D-Dimer, Quantitative < 230 ng/mL (0-230) 07/30/16 14:25 Sodium 140 mmol/L (135-145) 07/30/16 14:25 Potassium 3.9 mmol/L (3.6-5.0) 07/30/16 14:25 Chloride 112 mmol/L (101-111) H 07/30/16 14:25 Carbon Dioxide 23 mmol/L (21-31) 07/30/16 14:25 Anion Gap 8.9 (12-18) L 07/30/16 14:25 BUN 17 mg/dL (7-18) 07/30/16 14:25 Creatinine 0.85 mg/dL (0.6-1.3) 07/30/16 14:25 BUN/Creatinine Ratio 20.0 (10-20) 07/30/16 14:25 Random Glucose 97 mg/dL (70-105) 07/30/16 14:25 Serum Osmolality 280.9 mOsm/L (275-295) 07/30/16 14:25 Calcium 8.9 mg/dL (8.4-10.2) 07/30/16 14:25 Total Bilirubin 0.5 mg/dL (0.2-1.0) 07/30/16 14:25 AST 19 IU/L (10-42) 07/30/16 14:25 ALT 20 IU/L (10-60) 07/30/16 14:25 Alkaline Phosphatase 121 IU/L (42-121) 07/30/16 14:25 Creatine Kinase 86 IU/L (26-140) 07/30/16 14:25 CK-MB (CK-2) 2.3 ng/mL (0.0-4.4) 07/30/16 14:25 CK-MB (CK-2) % Not Reportable 07/30/16 14:25 Troponin I < 0.02 ng/mL (0.01-0.05) 07/30/16 14:25 B-Natriuretic Peptide 269.0 pg/ml (0-100) H* 07/30/16 14:25 Serum Total Protein 6.8 gm/dL (6.4-8.2) 07/30/16 14:25 Albumin 3.6 g/dl (3.2-5.5) 07/30/16 14:25 Globulin 3.2 gm/dL (2.3-3.5) 07/30/16 14:25 Albumin/Globulin Ratio 1.1 (1.1-1.9) 07/30/16 14:25 TSH 4.04 uIU/mL (0.34-5.60) 07/30/16 14:25 Urine Color Yellow (Yellow) 07/30/16 14:30 Urine Appearance Clear (Clear) 07/30/16 14:30 Urine pH 5.5 (4.5-7.8) 07/30/16 14:30 Ur Specific [place] 1.015 (1.005-1.030) 07/30/16 14:30 Urine Protein Negative mg/dL 07/30/16 14:30 Urine Glucose (UA) Negative mg/dL (Negative) 07/30/16 14:30 Urine Ketones Negative mg/dL (NEGATIVE) 07/30/16 14:30 Urine Blood Negative (Negative) 07/30/16 14:30 Urine Nitrite Negative 07/30/16 14:30 Urine Bilirubin Negative (NEGATIVE) 07/30/16 14:30 Urine Urobilinogen 0.2 mg/dL (0.2-1.0) 07/30/16 14:30 Ur Leukocyte Esterase Trace (Negative) H 07/30/16 14:30 Urine RBC 0-1 /hpf 07/30/16 14:30 Urine WBC 3-5 /hpf H 07/30/16 14:30 Ur Epithelial Cells 1-3 /hpf 07/30/16 14:30 Amorphous Sediment 1+ 07/30/16 14:30 Urine Bacteria Rare 07/30/16 14:30 Urine Mucus Small 07/30/16 14:30 Departure - Departure Clinical Impression: Dizziness, nonspecific, Sinus bradycardia by electrocardiogram Time of Disposition: 16:40 Disposition: Discharge to Home or Self Care Condition: Good Referrals: Pawan Peña MD [Primary Care Provider] - 1-2 Weeks Home Medications: Ambulatory Orders Atorvastatin Calcium [Lipitor] 10 mg PO QPM 01/13/14 Lisinopril 10 mg PO DAILY@0700 08/23/15 Metoprolol Succinate [Metoprolol Succinate ER] 100 mg PO DAILY@0700 08/23/15 Levetiracetam [Keppra] 500 mg PO BID 04/26/16 Oxcarbazepine [Trileptal] 150 mg PO BID 07/10/16 Aspirin [Donte Low Dose] 81 mg PO DAILY 07/30/16 Ergocalciferol [Vitamin D] 50,000 unit PO WKLY 07/30/16 Additional Instructions: DO NOT TAKE YOU METOPROLOL IN AM;KEEP APPOINTMENT WITH DR. RODRIGUEZ BANQUET HOUSEPERSON in AM 07/31/16 RETURN TO EMERGENCY ROOM NEEDED
[2016-07-30] MEDS ORDERED: SODIUM CHLORIDE 0.9% 250ML 250 ML IVS ONE (14:08)
[2016-07-30 14:12] VITALS: TEMP 97.8
--- NOTE | 2016-07-30 14:43 | RAD ---
Portable chest INDICATION: Chest pain COMPARISON: March 30 IMPRESSION: Heart size upper limits normal. Lungs are clear. No acute chest process. Calcific tendinitis in the shoulders left greater than right. Electronically signed by: Jose Sheets MD 07/30/2016 2:43 PM CDT
[2016-07-30 16:56] VITALS: BP 123/63; O2SAT 95
== END 2016-07-30 16:59 | disposition home or self-care (01) ==
LOC: ER 13:58
DX: R42 Dizziness and giddiness (principal); R00.1 Bradycardia, unspecified; Z79.82 Long term (current) use of aspirin; Z79.899 Other long term (current) drug therapy; I10 Essential (primary) hypertension; G40.909 Epilepsy, unspecified, not intractable, without status epilepticus; S50.812A Abrasion of left forearm, initial encounter; S50.811A Abrasion of right forearm, initial encounter; W19.XXXA Unspecified fall, initial encounter; Y92.007 Garden or yard of unspecified non-institutional (private) residence as the place of occurrence of the external cause
CPT/HCPCS: 36415; 71010; 80053; 81001; 82550; 82553; 83880; 84443; 84484; 85025; 85379; 85610; 85730; J7050

== ENCOUNTER → 2016-08-09 | Outpatient (CLI) | payer MEDICARE, OTHER | END | disposition home or self-care (01) | LOC: GMAM 10:13 | PROVIDERS: ATTEND Family Medicine | DX: E53.8 Deficiency of other specified B group vitamins (principal); R94.6 Abnormal results of thyroid function studies ==

== ENCOUNTER 2016-08-31 13:51 | Emergency (ER) | payer MEDICARE, OTHER ==
[2016-08-31 14:12] VITALS: TEMP 97.4
--- NOTE | 2016-08-31 14:18 | ED.PDOC ---
History of Present Illness - General Chief Complaint: Cardiovascular Problem Stated Complaint: low heart rate Time Seen by Provider: 08/31/16 14:16 Source: patient Exam Limitations: no limitations - History of Present Illness Initial Comments: Agnes Abdi 71 y/o female stated that she got light headed yesterday after getting out of bed but able to go to work with just one episode and today at work felt light headed and check her blood pressure stated systolic 150 but the machine showed pulse rate to be 44 /min and with her other symptom came to er and get checked. While on monitor for several seconds heart rate was 70/min no bradycardic episodes noted and standing bp-150/78 hr-71/min.Had loop recording placed on her 2 weeks ago for light headedness by her client care specialist but she was never called up for low heart rate Timing/Duration: changing over time, intermittent, other - 2 days ago Severity: moderate Worsening Factors: other - on standing up Associated Symptoms: denies symptoms Allergies/Adverse Reactions: Allergies NO KNOWN ALLERGY Allergy (Verified 08/31/16 14:12) Home Medications: Ambulatory Orders Atorvastatin Calcium [Lipitor] 10 mg PO QPM 01/13/14 Lisinopril 10 mg PO DAILY@0700 08/23/15 Metoprolol Succinate [Metoprolol Succinate ER] 100 mg PO DAILY@0700 08/23/15 Levetiracetam [Keppra] 500 mg PO BID 04/26/16 Oxcarbazepine [Trileptal] 150 mg PO BID 07/10/16 Aspirin [Donte Low Dose] 81 mg PO DAILY 07/30/16 Ergocalciferol [Vitamin D] 50,000 unit PO WKLY 07/30/16 Review of Systems - Review of Systems Constitutional: States: no symptoms reported EENTM: States: no symptoms reported Respiratory: States: no symptoms reported Cardiology: States: see HPI Gastrointestinal/Abdominal: States: no symptoms reported Genitourinary: States: no symptoms reported Musculoskeletal: States: no symptoms reported Skin: States: no symptoms reported Neurological: States: see HPI Endocrine: States: no symptoms reported Hematologic/Lymphatic: States: no symptoms reported Past Medical History (General) - Patient Medical History Hx Seizures: Yes Hx Stroke: No Hx Dementia: No Hx Asthma: Yes Hx of COPD: No Hx Cardiac Disorders: No Hx Congestive Heart Failure: No Hx Pacemaker: No Hx Hypertension: Yes Hx Thyroid Disease: No Hx Diabetes: No Hx Gastroesophageal Reflux: No Hx Renal Disease: No Hx Cancer: No Hx of HIV: No Hx Hepatitis C: No Hx MRSA: No Hx Other PMH: Yes - Sleep Apnea-not using her cpap for over a year Surgical History: other - ,loop recorder monitor - Vaccination History Hx Tetanus, Diphtheria Vaccination: No Hx Influenza Vaccination: Yes - 2016 Hx Pneumococcal Vaccination: No - Social History Hx Tobacco Use: No Hx Alcohol Use: No Hx Substance Use: No Hx Substance Use Treatment: No Hx Depression: No Hx Physical Abuse: No Hx Emotional Abuse: No - Activities of Daily Living Patient Lives Alone: Yes - home Grooming Ability: Independent Eating (Feeding) Ability: Independent Toileting Ability: Independent - Female History Patient : No Family Medical History - Family History Daughter Living Status: Still Living Hx Family Asthma: No Hx Family Congestive Heart Failure: No Hx Family Hypertension: Yes Hx Family Stroke: No Hx Cardiac Disease: No Hx Family Diabetes: No Hx Family Cancer: Yes - liver, both brothers Hx Family;Other: Alzheimer's DEMENTIA Physical Exam - Physical Exam General Appearance: Alert, Comfortable, No apparent distress Eye Exam: bilateral normal Ears, Nose, Throat: hearing grossly normal, normal ENT inspection, normal pharynx Neck: non-tender, full range of motion, supple Respiratory: chest non-tender, lungs clear, normal breath sounds, no respiratory distress Cardiovascular/Chest: normal peripheral pulses, regular rate, rhythm, no edema, no murmur Peripheral Pulses: radial,right: 2+, radial,left: 2+ Gastrointestinal/Abdominal: normal bowel sounds, non tender, soft, no organomegaly Back Exam: normal inspection, no CVA tenderness, no vertebral tenderness Extremity: normal range of motion, non-tender Neurologic: tire tester II-XII nml as tested, no motor/sensory deficits, alert, normal mood/affect, oriented x 3 Skin Exam: normal color, warm/dry Lymphatic: no adenopathy Progress - Progress Progress: 08/31/16 15:11 Vital Signs - 8 hr 08/31/16 14:10 Temperature 97.4 F L Pulse Rate [ 70 Right Radial] Respiratory 18 Rate Blood Pressure 155/90 [Right Arm] O2 Sat by Pulse 99 Oximetry 08/31/16 16:03 Heart monitor did not show episodes of bradycardia-heart rate 65-71/minute - Results/Orders Results/Orders: 08/31/16 14:20 EKG Assessment ONCE 08/31/16 14:30 EKG STAT 08/31/16 15:02 URINE CULTURE W/COLONY COUNT Stat Laboratory Results - last 24 hr 08/31/16 08/31/16 08/31/16 14:30 14:30 15:02 WBC 6.9 RBC 4.39 Hgb 10.9 L Hct 33.5 L MCV 76.5 L MCH 24.8 L MCHC 32.5 L RDW 16.5 H Plt Count 230 MPV 7.9 Absolute Neuts (auto) 4.10 Absolute Lymphs (auto) 1.70 Absolute Monos (auto) 0.80 Absolute Eos (auto) 0.20 Absolute Basos (auto) 0.10 Neutrophils % 59.5 Lymphocytes % 24.3 Monocytes % 11.9 H Eosinophils % 3.2 Basophils % 1.1 Sodium 140 Potassium 4.3 Chloride 108 Carbon Dioxide 22 Anion Gap 14.3 BUN 13 Creatinine 0.89 BUN/Creatinine Ratio 14.6 Random Glucose 82 Serum Osmolality 278.6 Calcium 9.1 Total Bilirubin 0.4 AST 16 ALT 15 Alkaline Phosphatase 123 H Creatine Kinase 73 CK-MB (CK-2) 1.4 CK-MB (CK-2) % Not Reportable Troponin I 0.02 B-Natriuretic Peptide 122.0 H Serum Total Protein 6.9 Albumin 3.5 Globulin 3.4 Albumin/Globulin Ratio 1.0 L TSH 3.93 Urine Color Yellow Urine Appearance Sl cloudy Urine pH 7.0 Ur Specific [place] 1.015 Urine Protein Negative Urine Glucose (UA) Negative Urine Ketones Negative Urine Blood Negative Urine Nitrite Negative Urine Bilirubin Negative Urine Urobilinogen 0.2 Ur Leukocyte Esterase Moderate H Urine RBC 3-5 H Urine WBC 30-40 H Ur Epithelial Cells 5-10 Urine Bacteria 2+ H - EKG/XRAY/CT EKG: Sinus, no ST T wave changes Comments: hear rate-69 Departure - Departure Clinical Impression: Light headedness, History of sinus bradycardia, Abnormal urinalysis Time of Disposition: 16:06 Disposition: Discharge to Home or Self Care Condition: Good Departure Forms: ED Discharge - Pt. Copy, Patient Portal Self Enrollment Referrals: Pawan Peña MD [Primary Care Provider] - 1-2 Weeks Home Medications: Ambulatory Orders Atorvastatin Calcium [Lipitor] 10 mg PO QPM 01/13/14 Lisinopril 10 mg PO DAILY@0700 08/23/15 Metoprolol Succinate [Metoprolol Succinate ER] 100 mg PO DAILY@0700 08/23/15 Levetiracetam [Keppra] 500 mg PO BID 04/26/16 Oxcarbazepine [Trileptal] 150 mg PO BID 07/10/16 Aspirin [Donte Low Dose] 81 mg PO DAILY 07/30/16 Ergocalciferol [Vitamin D] 50,000 unit PO WKLY 07/30/16 Additional Instructions: Keep appointment with primary md ,client care specialist and neurologist. Return to emergency room as needed Continue with all home meds.
[2016-08-31 16:31] VITALS: BP 146/78; O2SAT 98
== END 2016-08-31 16:30 | disposition home or self-care (01) ==
LOC: ER 13:51
DX: R42 Dizziness and giddiness (principal); R82.90 Unspecified abnormal findings in urine; R00.1 Bradycardia, unspecified; J45.909 Unspecified asthma, uncomplicated; R56.9 Unspecified convulsions; Z79.82 Long term (current) use of aspirin; Z79.899 Other long term (current) drug therapy

== ENCOUNTER → 2016-09-03 | Outpatient (CLI) | payer MEDICARE, OTHER | END | disposition home or self-care (01) | LOC: GMAM 14:47 | PROVIDERS: ATTEND Family Medicine | DX: N39.0 Urinary tract infection, site not specified (principal) ==

== ENCOUNTER 2016-09-14 12:53 | Emergency (ER) | payer MEDICARE, OTHER ==
[2016-09-14] MEDS ORDERED: ASPIRIN TABLET 325 MG TAB PO ONE (13:18)
--- NOTE | 2016-09-14 13:34 | ED.PDOC ---
History of Present Illness - General Chief Complaint: Chest Pain/CA Stated Complaint: Chest pain x 2 hrs Time Seen by Provider: 09/14/16 13:24 Source: patient Exam Limitations: no limitations - History of Present Illness Initial Comments: Patient presents with chest pain for about 90 minutes. She said she got light- headed twice this morning then sat down and chest pain started. It is just to the left of the sternum, non-radiating, constant, sharp in nature, no exacerbating nor alleviating factors, no previous episodes, no other associated symptoms. Patient denies any cardiac history. She is not diabetic. She does take lipitor. Non-smoker. Timing/Duration: 1-3 hours Severity: moderate Improving Factors: nothing Worsening Factors: nothing Associated Symptoms: other - see HPI Allergies/Adverse Reactions: Allergies NO KNOWN ALLERGY Allergy (Verified 09/14/16 13:07) Home Medications: Ambulatory Orders Atorvastatin Calcium [Lipitor] 10 mg PO QPM 01/13/14 Lisinopril 10 mg PO DAILY@0700 08/23/15 Levetiracetam [Keppra] 500 mg PO BID 04/26/16 Oxcarbazepine [Trileptal] 150 mg PO BID 07/10/16 Aspirin [Donte Low Dose] 81 mg PO DAILY 07/30/16 Review of Systems - Review of Systems Constitutional: States: no symptoms reported EENTM: States: no symptoms reported Respiratory: States: no symptoms reported Cardiology: States: see HPI Gastrointestinal/Abdominal: States: no symptoms reported Genitourinary: States: no symptoms reported Musculoskeletal: States: no symptoms reported Skin: States: no symptoms reported Neurological: States: other - light-headed Endocrine: States: no symptoms reported Hematologic/Lymphatic: States: no symptoms reported Past Medical History (General) - Patient Medical History Hx Seizures: Yes Hx Stroke: No Hx Dementia: No Hx Asthma: Yes Hx of COPD: No Hx Cardiac Disorders: Yes - irregular rhythm Hx Congestive Heart Failure: No Hx Pacemaker: No Hx Hypertension: Yes Hx Thyroid Disease: No Hx Diabetes: No Hx Gastroesophageal Reflux: No Hx Renal Disease: No Hx Cancer: No Hx of HIV: No Hx Hepatitis C: No Hx MRSA: No - Vaccination History Hx Tetanus, Diphtheria Vaccination: No Hx Influenza Vaccination: Yes - 2016 Hx Pneumococcal Vaccination: No - Social History Hx Tobacco Use: No Hx Alcohol Use: No Hx Substance Use: No Hx Substance Use Treatment: No Hx Depression: No Hx Physical Abuse: No Hx Emotional Abuse: No - Female History Patient : No Family Medical History - Family History Daughter Living Status: Still Living Hx Family Asthma: No Hx Family Congestive Heart Failure: No Hx Family Hypertension: Yes Hx Family Stroke: No Hx Cardiac Disease: No Hx Family Diabetes: No Hx Family Cancer: Yes - liver, both brothers Hx Family;Other: Alzheimer's DEMENTIA Physical Exam - Physical Exam General Appearance: Alert Respiratory: chest non-tender, lungs clear Cardiovascular/Chest: normal peripheral pulses, regular rate, rhythm Gastrointestinal/Abdominal: normal bowel sounds, non tender, soft Extremity: normal inspection, no pedal edema Skin Exam: normal color Progress - Progress Progress: 09/14/16 13:34 EKG read by me shows NSR with no ST changes nor LBBB. ASA 324 mg po x one. 09/14/16 17:57 Original troponin was negative. Repeat troponin at 3 hours was 0.15. Repeat EKG showed NSR witn no ST changes nor LBBB. Patient still had mild pain but it was improved. Diagnosed with NSTEMI. Plavix 300 mg po x one. Heparin 4000 IU bolus x one then 12/IU/Kg/hr. Morphine 4 mg IV x one. Nitroglycerin starting at 20 mcg/min then titrated to keep systolic between 100 and 120. Patient transferred to [facility]. Dr. Love is her tank wagon driver and has privileges there. 09/14/16 14:00 EKG STAT 09/14/16 15:51 EKG Assessment ONCE 09/14/16 16:00 EKG STAT Laboratory Results - last 24 hr 09/14/16 09/14/16 09/14/16 13:42 13:42 13:42 WBC 7.3 RBC 4.53 Hgb 11.1 L Hct 34.4 L MCV 75.9 L MCH 24.5 L MCHC 32.3 L RDW 16.2 H Plt Count 226 MPV 8.6 Absolute Neuts (auto) 5.10 Absolute Lymphs (auto) 1.30 Absolute Monos (auto) 0.70 Absolute Eos (auto) 0.20 Absolute Basos (auto) 0.10 Neutrophils % 69.9 Lymphocytes % 18.0 L Monocytes % 9.1 H Eosinophils % 2.1 Basophils % 0.9 PT 11.5 INR 1.020 PTT (SP) 28.1 Sodium 140 Potassium 4.2 Chloride 108 Carbon Dioxide 22 Anion Gap 14.2 BUN 18 Creatinine 0.96 BUN/Creatinine Ratio 18.8 Random Glucose 124 H Serum Osmolality 282.7 Calcium 9.5 Total Bilirubin 0.7 AST 17 ALT 12 Alkaline Phosphatase 145 H Creatine Kinase CK-MB (CK-2) CK-MB (CK-2) % Troponin I B-Natriuretic Peptide Serum Total Protein 7.6 Albumin 3.9 Globulin 3.7 H Albumin/Globulin Ratio 1.1 09/14/16 09/14/16 13:42 17:01 WBC RBC Hgb Hct MCV MCH MCHC RDW Plt Count MPV Absolute Neuts (auto) Absolute Lymphs (auto) Absolute Monos (auto) Absolute Eos (auto) Absolute Basos (auto) Neutrophils % Lymphocytes % Monocytes % Eosinophils % Basophils % PT INR PTT (SP) Sodium Potassium Chloride Carbon Dioxide Anion Gap BUN Creatinine BUN/Creatinine Ratio Random Glucose Serum Osmolality Calcium Total Bilirubin AST ALT Alkaline Phosphatase Creatine Kinase 91 89 CK-MB (CK-2) 1.5 2.4 CK-MB (CK-2) % Not Reportable Not Reportable Troponin I 0.02 0.15 H* B-Natriuretic Peptide 145.0 H Serum Total Protein Albumin Globulin Albumin/Globulin Ratio Departure - Departure Clinical Impression: NSTEMI (non-ST elevated myocardial infarction) Disposition: Transfer to Hospital Condition: Fair Departure Forms: ED Discharge - Pt. Copy, Patient Portal Self Enrollment Diet: other - NPO Activity: other - as per hospitalist Referrals: Pawan Peña MD [Primary Care Provider] - 1-2 Weeks Home Medications: Ambulatory Orders Atorvastatin Calcium [Lipitor] 10 mg PO QPM 01/13/14 Lisinopril 10 mg PO DAILY@0700 08/23/15 Levetiracetam [Keppra] 500 mg PO BID 04/26/16 Oxcarbazepine [Trileptal] 150 mg PO BID 07/10/16 Aspirin [Donte Low Dose] 81 mg PO DAILY 07/30/16
[2016-09-14] MEDS ORDERED: NITROGLYCERIN 0.4 MG 25 EA TAB SL ONE ×2 (13:40→13:41)
--- NOTE | 2016-09-14 13:51 | RAD ---
EXAM DESCRIPTION: Chest,1 View CLINICAL HISTORY: chest pain COMPARISON: None available FINDINGS: The cardiomediastinal silhouette is unremarkable. There is no airspace consolidation or pleural effusion. The bronchovascular markings are within normal limits, and the lungs are not hyperinflated. There is no pneumothorax or acute fracture. IMPRESSION: Negative exam. Electronically signed by: Artur Abdi MD 09/14/2016 1:50 PM CDT Workstation: [id number]
[2016-09-14] MEDS ORDERED: CLOPIDOGREL 75 MG TAB PO ONE (17:48)
[2016-09-14] MEDS ORDERED: MORPHINE SULFATE INJ 10 MG/ML VIAL IV ONE (17:52)
[2016-09-14] MEDS ORDERED: HEPARIN SODIUM (PORCINE) 5,000 U/ML VIAL IV ONE (17:55)
[2016-09-14] MEDS ORDERED: NITROGLYCERIN/D5W IV 50,000 MCG in PREMIX BOTTLE 1 BOTTLE IVS SCH (18:00)
[2016-09-14] MEDS ORDERED: HEPARIN PREMIX 25,000 UNITS in PREMIX BAG 1 BAG IVS SCH (18:00)
[2016-09-14] MEDS ORDERED: HEPARIN PREMIX 500 ML ONE (18:05)
[2016-09-14] MEDS ORDERED: NITROGLYCERIN/D5W IV 250 ML IVS ONE (18:07)
[2016-09-14 19:08] VITALS: BP 167/88; TEMP 97.8; O2SAT 95
== END 2016-09-14 19:00 | disposition short-term general hospital (02) ==
LOC: ER 12:53
DX: I21.4 Non-ST elevation (NSTEMI) myocardial infarction (principal); I10 Essential (primary) hypertension; J45.909 Unspecified asthma, uncomplicated; Z79.82 Long term (current) use of aspirin; Z79.899 Other long term (current) drug therapy

== ENCOUNTER 2016-09-22 06:16 | Emergency (ER) | payer MEDICARE, OTHER ==
[2016-09-22] MEDS ORDERED: ASPIRIN TABLET 325 MG TAB ONE (06:33)
--- NOTE | 2016-09-22 06:36 | ED.PDOC ---
History of Present Illness - General Source: patient, family - daughter Exam Limitations: no limitations - History of Present Illness Initial Comments: Agnes Abdi 71 y/o female stated that last night she tried using her cpap at bedtime but it was blowing too much air discontinued it and unable to sleep well with sob which got worse this am.Had recent [place] last week s/p cardiac stent placement.No chest pains. Timing/Duration: 4-6 hours Severity: moderate Activities at Onset: rest Prior Chest Pain/Cardiac Workup: cardiac cath, heart attack, other - cardiac stent Improving Factors: rest Worsening Factors: nothing - + Associated Symptoms: shortness of breath <Jake Mullins - Last Filed: 09/22/16 07:38> <Leticia Castro - Last Filed: 09/22/16 10:43> - General Chief Complaint: Chest Pain/IL Stated Complaint: Difficulty Breathing Time Seen by Provider: 09/22/16 06:34 - History of Present Illness Allergies/Adverse Reactions: Allergies NO KNOWN ALLERGY Allergy (Verified 09/14/16 13:07) Home Medications: Ambulatory Orders Atorvastatin Calcium [Lipitor] 10 mg PO QPM 01/13/14 Lisinopril 10 mg PO DAILY@0700 08/23/15 Levetiracetam [Keppra] 500 mg PO BID 04/26/16 Oxcarbazepine [Trileptal] 150 mg PO BID 07/10/16 Aspirin [Donte Low Dose] 81 mg PO DAILY 07/30/16 ALPRAZolam [Xanax] 0.25 mg PO BID PRN #10 tab 09/22/16 Review of Systems - Review of Systems Constitutional: States: no symptoms reported EENTM: States: no symptoms reported Respiratory: States: see HPI, short of breath Cardiology: States: no symptoms reported Gastrointestinal/Abdominal: States: no symptoms reported Genitourinary: States: no symptoms reported Musculoskeletal: States: no symptoms reported Skin: States: no symptoms reported Neurological: States: no symptoms reported Endocrine: States: no symptoms reported Hematologic/Lymphatic: States: no symptoms reported <Jake Mullins R - Last Filed: 09/22/16 07:38> Past Medical History (General) - Patient Medical History Hx Seizures: Yes Hx Stroke: No Hx Dementia: No Hx Asthma: Yes Hx of COPD: No Hx Cardiac Disorders: Yes - irregular rhythm Hx Congestive Heart Failure: No Hx Pacemaker: No Hx Hypertension: Yes Hx Thyroid Disease: No Hx Diabetes: No Hx Gastroesophageal Reflux: No Hx Renal Disease: No Hx Cancer: No Hx of HIV: No Hx Hepatitis C: No Hx MRSA: No Hx Other PMH: Yes - luciana Surgical History: other - ,loop recorder - Vaccination History Hx Tetanus, Diphtheria Vaccination: No Hx Influenza Vaccination: Yes - 2016 Hx Pneumococcal Vaccination: No - Social History Hx Tobacco Use: No Hx Alcohol Use: No Hx Substance Use: No Hx Substance Use Treatment: No Hx Depression: No Hx Physical Abuse: No Hx Emotional Abuse: No - Activities of Daily Living Grooming Ability: Independent Eating (Feeding) Ability: Independent Toileting Ability: Independent - Female History Patient is a Female of Child Bearing Age (10 -59 yrs old): No Patient : No <Jake Mullins R - Last Filed: 09/22/16 07:38> Family Medical History - Family History Daughter Living Status: Still Living Hx Family Asthma: No Hx Family Congestive Heart Failure: No Hx Family Hypertension: Yes Hx Family Stroke: No Hx Cardiac Disease: No Hx Family Diabetes: No Hx Family Cancer: Yes - liver, both brothers Hx Family;Other: Alzheimer's DEMENTIA <Jake Mullins R - Last Filed: 09/22/16 07:38> Physical Exam - Physical Exam General Appearance: Alert, Anxious, Comfortable, No apparent distress Eyes, Ears, Nose, Throat Exam: PERRL/EOMI, normal ENT inspection, pharynx normal Neck: non-tender, full range of motion, supple, normal inspection Respiratory: chest non-tender, lungs clear, normal breath sounds, no respiratory distress Cardiovascular/Chest: normal peripheral pulses, regular rate, rhythm, no edema, no gallop, no JVD, no murmur Peripheral Pulses: radial,right: 1+, radial,left: 1+ Gastrointestinal/Abdominal: normal bowel sounds, non tender, soft, no organomegaly Extremity: normal range of motion, non-tender, normal inspection, no pedal edema , no calf tenderness Neurologic: alert, normal mood/affect, oriented x 3 Skin Exam: normal color, warm/dry Lymphatic: no adenopathy <Jake Mullins R - Last Filed: 09/22/16 07:38> Progress - Progress Progress: 09/22/16 07:04 Vital Signs - 8 hr 09/22/16 06:34 Temperature 97.6 F Pulse Rate [R 90 Arm] Respiratory 22 Rate O2 Sat by Pulse 99 Oximetry 09/22/16 07:38 Troponin is slightly elevated @ 0.06. This could be related to [place] last week or could be new. D-Dimer is also slightly elevated @ 238. Also could be related to recent cardiac event or could be new given her c/o SOB. Will recheck labs in ~2 hours, 3 hours since first set. - EKG/XRAY/CT EKG: Sinus, no ST T wave changes Comments: heart rate-85 XRAY: chest - Mitral calcifications, o/w nl per Radiologist <Jake Mullins R - Last Filed: 09/22/16 07:38> - Progress Progress: 09/22/16 10:38 Second set of cardiac labs are normal. Discussed labs, EKG and CXR with patient. Suspect symptoms are from anxiety and not using CPAP last night. She has follow up scheduled with her PCP, Dr. Peña, on Fri. and Professor Of Counseling, Dr. Sneed, on Friday. She would like something for anxiety. Will give Rx for a few Xanax and advised she discuss further anxiety treatment with Dr. Peña. - Results/Orders Results/Orders: Laboratory Tests 09/22/16 09/22/16 09/22/16 06:44 06:50 06:50 WBC 6.3 RBC 4.07 L Hgb 10.1 L Hct 30.7 L MCV 75.3 L MCH 24.8 L MCHC 33.1 RDW 16.4 H Plt Count 243 MPV 8.0 Absolute Neuts (auto) 4.30 Absolute Lymphs (auto) 1.20 Absolute Monos (auto) 0.60 Absolute Eos (auto) 0.20 Absolute Basos (auto) 0.10 Neutrophils % 67.9 Lymphocytes % 18.3 L Monocytes % 9.1 H Eosinophils % 3.5 Basophils % 1.2 PT 11.3 INR 1.000 PTT (SP) 29.0 D-Dimer, Quantitative 238 H* Sodium 141 Potassium 3.9 Chloride 110 Carbon Dioxide 20 L Anion Gap 14.9 BUN 23 H Creatinine 0.98 BUN/Creatinine Ratio 23.5 H Random Glucose 120 H Serum Osmolality 286.1 Calcium 9.5 Magnesium 2.0 Total Bilirubin 0.7 Direct Bilirubin < 0.1 Indirect Bilirubin 0.6 AST 23 ALT 27 Alkaline Phosphatase 122 H Creatine Kinase 157 H CK-MB (CK-2) 3.1 CK-MB (CK-2) % Not Reportable Troponin I 0.06 H B-Natriuretic Peptide 95.9 Serum Total Protein 7.4 Albumin 3.8 Globulin Cancelled Albumin/Globulin Ratio Cancelled Urine Color Urine Appearance Urine pH Ur Specific [place] Urine Protein Urine Glucose (UA) Urine Ketones Urine Blood Urine Nitrite Urine Bilirubin Urine Urobilinogen Ur Leukocyte Esterase Urine RBC Urine WBC Ur Epithelial Cells Urine Bacteria 09/22/16 09/22/16 09/22/16 07:07 09:46 09:46 WBC RBC Hgb Hct MCV MCH MCHC RDW Plt Count MPV Absolute Neuts (auto) Absolute Lymphs (auto) Absolute Monos (auto) Absolute Eos (auto) Absolute Basos (auto) Neutrophils % Lymphocytes % Monocytes % Eosinophils % Basophils % PT INR PTT (SP) D-Dimer, Quantitative < 230 Sodium Potassium Chloride Carbon Dioxide Anion Gap BUN Creatinine BUN/Creatinine Ratio Random Glucose Serum Osmolality Calcium Magnesium Total Bilirubin Direct Bilirubin Indirect Bilirubin AST ALT Alkaline Phosphatase Creatine Kinase 153 H CK-MB (CK-2) 2.8 CK-MB (CK-2) % Not Reportable Troponin I 0.05 B-Natriuretic Peptide Serum Total Protein Albumin Globulin Albumin/Globulin Ratio Urine Color Yellow Urine Appearance Clear Urine pH 7.0 Ur Specific [place] 1.015 Urine Protein Negative Urine Glucose (UA) Negative Urine Ketones Negative Urine Blood Trace-intact H Urine Nitrite Negative Urine Bilirubin Negative Urine Urobilinogen 0.2 Ur Leukocyte Esterase Trace H Urine RBC 0-1 Urine WBC 0-1 Ur Epithelial Cells 3-5 Urine Bacteria Rare <Leticia Castro - Last Filed: 09/22/16 10:43> Departure <Jake Mullins - Last Filed: 09/22/16 07:38> - Departure Time of Disposition: 10:41 Diet: resume usual diet Activity: increase activity as tolerated <Leticia Castro - Last Filed: 09/22/16 10:43> - Departure Clinical Impression: Shortness of breath, Anxiety as acute reaction to exceptional stress Disposition: Discharge to Home or Self Care Condition: Good Departure Forms: ED Discharge - Pt. Copy, Patient Portal Self Enrollment Instructions: DI for Shortness of Breath, How to Manage Shortness of Breath Referrals: Pawan Peña MD [Primary Care Provider] - 09/25/16 Prescriptions: ALPRAZolam [Xanax] 0.25 mg PO BID PRN #10 tab PRN Reason: Anxiety Home Medications: Ambulatory Orders Atorvastatin Calcium [Lipitor] 10 mg PO QPM 01/13/14 Lisinopril 10 mg PO DAILY@0700 08/23/15 Levetiracetam [Keppra] 500 mg PO BID 04/26/16 Oxcarbazepine [Trileptal] 150 mg PO BID 07/10/16 Aspirin [Donte Low Dose] 81 mg PO DAILY 07/30/16 ALPRAZolam [Xanax] 0.25 mg PO BID PRN #10 tab 09/22/16
[2016-09-22] MEDS ORDERED: ASPIRIN TABLET 325 MG TAB PO ONE (06:38)
[2016-09-22 06:42] VITALS: TEMP 97.6
--- NOTE | 2016-09-22 07:06 | RAD ---
Procedure: XR CHEST 2 VIEWS Exam Date: 09/22/2016 Ordering Provider: Jake Mullins Clinical Indication: Dyspnea Comparison: 09/14/2016 Findings: Cardiac silhouette: Mitral annular calcifications. Pulmonary vasculature : Normal Mediastinal contour: Normal Aortic contour: Normal Focal lung consolidation: None Pleural effusion: None Pneumothorax: None Acute bony or soft tissue abnormality: None Impression: 1. Mitral annular calcifications. 2. No focal lung consolidation or pleural effusion. Electronically signed by: Mookie Butler MD 09/22/2016 7:04 AM CDT
[2016-09-22 08:59] VITALS: O2SAT 95
[2016-09-22 10:50] VITALS: BP 155/81
== END 2016-09-22 10:50 | disposition home or self-care (01) ==
LOC: ER 06:16
DX: R06.02 Shortness of breath (principal); F41.1 Generalized anxiety disorder; F43.0 Acute stress reaction; G47.33 Obstructive sleep apnea (adult) (pediatric); I25.2 Old myocardial infarction; Z98.61 Coronary angioplasty status; I10 Essential (primary) hypertension; Z79.899 Other long term (current) drug therapy; Z79.82 Long term (current) use of aspirin

== ENCOUNTER → 2016-10-08 | Outpatient (CLI) | payer MEDICARE, OTHER | END | disposition home or self-care (01) | LOC: GMA 20:30 | PROVIDERS: ATTEND Nurse Practitioner Family | DX: R56.9 Unspecified convulsions (principal); N39.0 Urinary tract infection, site not specified ==

== ENCOUNTER 2016-10-11 17:22 | Emergency (ER) | payer MEDICARE, OTHER ==
--- NOTE | 2016-10-11 18:43 | RAD ---
EXAM DESCRIPTION: Chest,1 View CLINICAL HISTORY: sob, fatigue COMPARISON: September 22, 2016 FINDINGS: Cardiac silhouette is within normal limits. Aorta is tortuous. EKG leads project over the chest. There is no focal parenchymal or pleural disease. There is no acute osseous process visualized. IMPRESSION: No evidence of acute cardiopulmonary disease. Electronically signed by: Hosea Rosales MD 10/11/2016 6:41 PM CDT
--- NOTE | 2016-10-11 19:05 | ED.PDOC ---
History of Present Illness - General Chief Complaint: Cardiovascular Problem Time Seen by Provider: 10/11/16 17:23 Source: patient Exam Limitations: no limitations - History of Present Illness Initial Comments: the patient is a 71-year-old female presenting to the emergency room secondary to fatigue and generalized weakness along with some mild shortness of breath with any activity starting approximately 3 hours prior to arrival. Over the past 6 months the patient has had multiple episodes of syncope and near syncope with falls related. She additionally had a stent placed along with a loop recorder a few months ago at [facility]. She has since changed her cardiology care to Dr. Andrade in [place]. The patient presents today with a third-degree heart block with a junctional escape rhythm at around 45 bpm. She is oxygenating well. Blood pressures are adequate. She is much less symptomatic when she is resting. No chest pain. No syncope this time. The patient did not fall. She reports that she and Dr. Andrade have discussed placing a pacemaker in the near future if her symptoms continue to occur. This to my knowledge is the first time she has had a documented third-degree heart block. The patient has remained in third-degree heart block for approximately the first hour of her arrival here. She subsequently cardioverted back to a normal sinus rhythm at a rate of 84 bpm with a first-degree AV block after that. Pacing pads are in place that she is not being paced. We had discussed giving a trial of atropine with her and she had deferred given the minimal symptomatology at the time. She is still chest pain free. She is anxious. Timing/Duration: 1-3 hours Severity: moderate Improving Factors: rest Worsening Factors: movement Associated Symptoms: malaise, shortness of breath, weakness Allergies/Adverse Reactions: Allergies NO KNOWN ALLERGY Allergy (Verified 09/14/16 13:07) Home Medications: Ambulatory Orders Atorvastatin Calcium [Lipitor] 10 mg PO QPM 01/13/14 Lisinopril 10 mg PO DAILY@0700 08/23/15 Levetiracetam [Keppra] 500 mg PO BID 04/26/16 Oxcarbazepine [Trileptal] 150 mg PO BID 07/10/16 Aspirin [Donte Low Dose] 81 mg PO DAILY 07/30/16 ALPRAZolam [Xanax] 0.25 mg PO BID PRN #10 tab 09/22/16 Review of Systems - Review of Systems Constitutional: States: malaise, weakness - generalized EENTM: States: no symptoms reported Respiratory: States: short of breath - ith activity Cardiology: States: syncope - n the past Gastrointestinal/Abdominal: States: no symptoms reported Genitourinary: States: no symptoms reported Musculoskeletal: States: no symptoms reported Skin: States: no symptoms reported Neurological: States: anxiety Endocrine: States: no symptoms reported Hematologic/Lymphatic: States: no symptoms reported All other Systems: No Change from Baseline Past Medical History (General) - Patient Medical History Hx Seizures: Yes Hx Stroke: No Hx Dementia: No Hx Asthma: Yes Hx of COPD: No Hx Cardiac Disorders: Yes - irregular rhythm Hx Congestive Heart Failure: No Hx Pacemaker: No Hx Hypertension: Yes Hx Thyroid Disease: No Hx Diabetes: No Hx Gastroesophageal Reflux: No Hx Renal Disease: No Hx Cancer: No Hx of HIV: No Hx Hepatitis C: No Hx MRSA: No - Vaccination History Hx Tetanus, Diphtheria Vaccination: No Hx Influenza Vaccination: Yes - 2015 Hx Pneumococcal Vaccination: No - Social History Hx Tobacco Use: No Hx Chewing Tobacco Use: No Hx Alcohol Use: No Hx Substance Use: No Hx Substance Use Treatment: No Hx Depression: No Hx Physical Abuse: No Hx Emotional Abuse: No Hx Suspected Abuse: No - Female History Patient : No Family Medical History - Family History Daughter Living Status: Still Living Hx Family Asthma: No Hx Family Congestive Heart Failure: No Hx Family Hypertension: Yes Hx Family Stroke: No Hx Cardiac Disease: No Hx Family Diabetes: No Hx Family Cancer: Yes - liver, both brothers Hx Family;Other: Alzheimer's DEMENTIA Physical Exam - Physical Exam General Appearance: Alert, Anxious, No apparent distress Eye Exam: bilateral normal Ears, Nose, Throat: hearing grossly normal, normal ENT inspection, normal pharynx Neck: non-tender, full range of motion, supple Respiratory: chest non-tender, lungs clear, normal breath sounds, no respiratory distress, no accessory muscle use Cardiovascular/Chest: normal peripheral pulses, no edema, bradycardia - this appears to be a junctional escape bradycardia with intermittent PVCs Peripheral Pulses: radial,right: 2+, radial,left: 2+ Gastrointestinal/Abdominal: non tender, soft - bese Rectal Exam: deferred Back Exam: normal inspection, no CVA tenderness Extremity: normal range of motion, non-tender, no calf tenderness, normal capillary refill 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 This is likely the cause of at least several of her syncopal and near syncopal episodes over the last 6 months. The patient has spontaneously cardioverted back to normal sinus rhythm. No atropine or external pacing was required. The patient will be transferred to [facility] where her air quality consultant practices. Initial set of cardiac enzymes is negative and she is chest pain-free. Pacing pads will be left on for transit. vital signs are reassuring. - Results/Orders Results/Orders: Laboratory Tests 10/11/16 10/11/16 10/11/16 18:20 18:20 18:20 WBC 8.8 RBC 4.48 Hgb 10.9 L Hct 33.6 L MCV 75.1 L MCH 24.3 L MCHC 32.4 L RDW 16.6 H Plt Count 270 MPV 8.0 Absolute Neuts (auto) 5.60 Absolute Lymphs (auto) 2.00 Absolute Monos (auto) 0.90 H Absolute Eos (auto) 0.30 Absolute Basos (auto) 0.10 Neutrophils % 63.6 Lymphocytes % 22.2 Monocytes % 10.0 H Eosinophils % 3.2 Basophils % 1.0 PT 11.4 INR 1.010 PTT (SP) 28.7 Sodium 142 Potassium 4.1 Chloride 108 Carbon Dioxide 22 Anion Gap 16.1 BUN 15 Creatinine 1.09 BUN/Creatinine Ratio 13.8 Random Glucose 105 Serum Osmolality 284.3 Calcium 9.4 Magnesium 2.1 Total Bilirubin 0.6 AST 18 ALT 14 Alkaline Phosphatase 161 H Creatine Kinase 51 CK-MB (CK-2) 1.1 CK-MB (CK-2) % Not Reportable Troponin I < 0.02 B-Natriuretic Peptide 352.0 H* Serum Total Protein 7.8 Albumin 4.1 Globulin 3.7 H Albumin/Globulin Ratio 1.1 TSH 4.52 initial EKG showsa junctional bradycardia with occasional PVCs and a third- degree AV block. Repeat EKG shows a normal sinus rhythm with a borderline first-degree AV block. chest x-ray shows no evidence of acute cardiopulmonary disease. Departure - Departure Clinical Impression: Third degree AV block Disposition: Transfer to Hospital Referrals: Pawan Peña MD [Primary Care Provider] - 1-2 Weeks Home Medications: Ambulatory Orders Atorvastatin Calcium [Lipitor] 10 mg PO QPM 01/13/14 Lisinopril 10 mg PO DAILY@0700 08/23/15 Levetiracetam [Keppra] 500 mg PO BID 04/26/16 Oxcarbazepine [Trileptal] 150 mg PO BID 07/10/16 Aspirin [Donte Low Dose] 81 mg PO DAILY 07/30/16 ALPRAZolam [Xanax] 0.25 mg PO BID PRN #10 tab 09/22/16 Transfer to Outside Facility - Transfer Information Accepting Provider:: dr armas Accepting Facility: [facility] Reason for Transfer: required specialist not available
[2016-10-11 19:31] VITALS: TEMP 97.5
[2016-10-11 19:39] VITALS: BP 116/61
[2016-10-11 19:52] VITALS: O2SAT 94
== END 2016-10-11 19:52 | disposition short-term general hospital (02) ==
LOC: ER 17:22
DX: I44.2 Atrioventricular block, complete (principal); I10 Essential (primary) hypertension; Z82.49 Family history of ischemic heart disease and other diseases of the circulatory system; Z79.82 Long term (current) use of aspirin; Z79.899 Other long term (current) drug therapy

== ENCOUNTER → 2016-11-04 | Outpatient (CLI) | payer MEDICARE, OTHER | END | disposition home or self-care (01) | LOC: GMA 17:17 | PROVIDERS: ATTEND Nurse Practitioner Family | DX: R07.1 Chest pain on breathing (principal) ==

== ENCOUNTER → 2017-01-17 | Outpatient (CLI) | payer MEDICARE, OTHER ==
--- NOTE | 2017-01-19 00:15 | CT ---
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 PROCEDURE: CT LUMBAR SPINE WITHOUT IV CONTRAST. INDICATION: LOW BACK PN. COMPARISON: None. TECHNIQUE: Axial CT images of the lumbar spine were obtained without administration of intravenous contrast. This exam was performed according to our departmental dose-optimization program which includes use of Automated Exposure Control, adjustment of the mA and/or kV according to patient size and/or use of iterative reconstruction technique. FINDINGS: A the lumbar vertebral bodies demonstrate normal height and stature. A hemangioma is noted within the L2 and S1 vertebral bodies. There is minimal 3 mm anterolisthesis L3 on L4. Moderate intervertebral disc space height loss at L1-L4. T12-L1: No significant disc bulge. No spinal canal or neural foraminal narrowing. L1-L2: Mild disc bulge without spinal canal stenosis. Mild bilateral facet arthropathy resulting in mild right foraminal narrowing. No left foraminal stenosis. L2-L3: Mild disc bulge with osteophytic spurring. No spinal canal stenosis. Mild to moderate bilateral facet arthropathy contributes to mild right foraminal narrowing. No significant left foraminal stenosis. L3-L4: Anterolisthesis, disc bulge, and ligamentous hypertrophy results in at least moderate spinal canal stenosis. Moderate bilateral facet arthropathy without significant foraminal stenosis. L4-L5: Disc bulge and ligamentous hypertrophy contributes to mild/moderate spinal canal stenosis. Additionally, there is a 9 x 5 mm calcific fragment within the right lateral recess adjacent to the right facet joint of unclear etiology. Moderate bilateral facet arthropathy without significant foraminal stenosis. L5-S1: Mild disc bulge without spinal canal stenosis. Mild bilateral facet arthropathy without foraminal stenosis. There are two 2 to 3 mm nonobstructing renal stones within the left renal pelvis. Aortic atherosclerosis. IMPRESSION: Moderate multilevel degenerative changes with at least moderate spinal canal stenosis at L3-L4. There is a 9 x 5 mm calcific fragment within the right lateral recess at L4-L5 of unclear etiology. Differential considerations include calcified disc fragment or calcified meningioma. Mild/moderate spinal canal stenosis L4-L5. Subcentimeter left nephrolithiasis. Electronically signed by: Swapnil Chaidez MD 01/19/2017 12:14 AM [facility]
== END | disposition home or self-care (01) ==
LOC: CT 09:49
PROVIDERS: ATTEND Physician Assistant
DX: M48.061 Spinal stenosis, lumbar region without neurogenic claudication (principal); N20.0 Calculus of kidney

== ENCOUNTER 2017-03-06 21:59 | Emergency (ER) | payer MEDICARE, OTHER ==
--- NOTE | 2017-03-06 22:31 | ED.PDOC ---
History of Present Illness - General Chief Complaint: Respiratory Problem Stated Complaint: sob Time Seen by Provider: 03/06/17 22:28 Source: patient Exam Limitations: no limitations - History of Present Illness Initial Comments: Agnes Abdi 72 y/o female brought by pov with hoarseness,sore throat and SOB which started this afternoon and progressively got worse.No fever .chills, nausea or vomiting Timing/Duration: 4-6 hours, getting worse Improving Factors: nothing Worsening Factors: nothing Associated Symptoms: other - see hpi Allergies/Adverse Reactions: Allergies NO KNOWN ALLERGY Allergy (Verified 09/14/16 13:07) Home Medications: Ambulatory Orders Atorvastatin Calcium [Lipitor] 10 mg PO QPM 01/13/14 Lisinopril 10 mg PO DAILY@0700 08/23/15 Levetiracetam [Keppra] 500 mg PO BID 04/26/16 Oxcarbazepine [Trileptal] 150 mg PO BID 07/10/16 Aspirin [Donte Low Dose] 81 mg PO DAILY 07/30/16 ALPRAZolam [Xanax] 0.25 mg PO BID PRN #10 tab 09/22/16 Review of Systems - Review of Systems Constitutional: States: no symptoms reported EENTM: States: see HPI Respiratory: States: see HPI Cardiology: States: no symptoms reported Gastrointestinal/Abdominal: States: no symptoms reported Genitourinary: States: no symptoms reported Skin: States: no symptoms reported Neurological: States: no symptoms reported All other Systems: Reviewed and Negative, No Change from Baseline Past Medical History (General) - Patient Medical History Hx Seizures: Yes Hx Stroke: No Hx Dementia: No Hx Asthma: Yes Hx of COPD: No Hx Cardiac Disorders: Yes - [place] Hx Congestive Heart Failure: Yes Hx Pacemaker: Yes Hx Hypertension: Yes Hx Thyroid Disease: No Hx Diabetes: No Hx Gastroesophageal Reflux: No Hx Renal Disease: No Hx Cancer: No Hx of HIV: No Hx Hepatitis C: No Hx MRSA: No Surgical History: angioplasty, pacemaker, other - - Vaccination History Hx Tetanus, Diphtheria Vaccination: No Hx Influenza Vaccination: Yes Hx Pneumococcal Vaccination: Yes Immunizations Up to Date: Yes - Social History Hx Tobacco Use: No Hx Chewing Tobacco Use: No Hx Alcohol Use: No Hx Substance Use: No Hx Substance Use Treatment: No Hx Depression: No Hx Physical Abuse: No Hx Emotional Abuse: No Hx Suspected Abuse: No - Activities of Daily Living Patient Lives Alone: No - family Grooming Ability: Independent Eating (Feeding) Ability: Independent Toileting Ability: Independent - Female History Patient is a Female of Child Bearing Age (10 -59 yrs old): No Patient : No Family Medical History - Family History Daughter Living Status: Still Living Hx Family Asthma: No Hx Family Congestive Heart Failure: No Hx Family Hypertension: Yes Hx Family Stroke: No Hx Cardiac Disease: No Hx Family Diabetes: No Hx Family Cancer: Yes - liver, both brothers Hx Family;Other: Alzheimer's DEMENTIA Physical Exam - Physical Exam General Appearance: Alert, Comfortable, No apparent distress Eye Exam: bilateral normal Ears, Nose, Throat: hearing grossly normal, normal ENT inspection, normal pharynx, nasal congestion - bilaterally Neck: full range of motion, supple, normal inspection Respiratory: chest non-tender, other - coarse breath sounds Cardiovascular/Chest: normal peripheral pulses, regular rate, rhythm, no murmur Peripheral Pulses: radial,right: 2+, radial,left: 2+ Gastrointestinal/Abdominal: non tender, soft, no organomegaly Back Exam: no CVA tenderness, no vertebral tenderness Extremity: normal inspection, no pedal edema, no calf tenderness Neurologic: no motor/sensory deficits, alert, oriented x 3 Skin Exam: normal color, warm/dry Lymphatic: no adenopathy Progress - Progress Progress: 03/06/17 23:36 Last Vital Signs Temp 99.3 F 03/06/17 22:19 Pulse 99 H 03/06/17 22:19 Resp 22 03/06/17 22:19 BP 133/90 03/06/17 22:19 Pulse Ox 96 03/06/17 22:19 - Results/Orders Results/Orders: Laboratory Tests 03/06/17 03/06/17 03/06/17 22:25 22:39 22:39 WBC 8.2 RBC 4.32 Hgb 12.5 Hct 37.0 MCV 85.7 MCH 29.0 MCHC 33.9 RDW 14.2 Plt Count 211 MPV 8.3 Absolute Neuts (auto) 5.60 Absolute Lymphs (auto) 1.30 Absolute Monos (auto) 0.90 H Absolute Eos (auto) 0.30 Absolute Basos (auto) 0.10 Neutrophils % 68.6 Lymphocytes % 16.0 L Monocytes % 10.6 H Eosinophils % 3.6 Basophils % 1.2 PT 11.2 INR 0.990 PTT (SP) 28.8 D-Dimer, Quantitative < 230 Sodium 139 Potassium 3.4 L Chloride 105 Carbon Dioxide 25 Anion Gap 12.4 BUN 12 Creatinine 0.86 BUN/Creatinine Ratio 14.0 Random Glucose 107 H Serum Osmolality 277.8 Calcium 8.8 Magnesium 1.9 Total Bilirubin 0.4 Direct Bilirubin 0.1 Indirect Bilirubin 0.3 AST 15 ALT 12 Alkaline Phosphatase 135 H Creatine Kinase 116 CK-MB (CK-2) 2.3 Troponin I < 0.02 B-Natriuretic Peptide 56.1 Serum Total Protein 6.7 Albumin 3.5 Group A Strep DNA Negative flu swab negative - EKG/XRAY/CT EKG: nonspecific ST T wave Chg - inferolateral leads Comments: heart rate-90 pacemaker XRAY: chest - no acute changes Departure - Departure Clinical Impression: Viral respiratory illness, Laryngitis Dyspnea Qualifiers: Dyspnea type: unspecified Qualified Code(s): R06.00 - Dyspnea, unspecified Upper respiratory infection Qualifiers: URI type: unspecified URI Qualified Code(s): J06.9 - Acute upper respiratory infection, unspecified Time of Disposition: 23:41 Disposition: Discharge to Home or Self Care Departure Forms: ED Discharge - Pt. Copy, Patient Portal Self Enrollment Instructions: DI for Viral Upper Respiratory Infection -- Adult Referrals: Pawan Peña MD [Primary Care Provider] - 1-2 Weeks Home Medications: Ambulatory Orders Atorvastatin Calcium [Lipitor] 10 mg PO QPM 01/13/14 Lisinopril 10 mg PO DAILY@0700 08/23/15 Levetiracetam [Keppra] 500 mg PO BID 04/26/16 Oxcarbazepine [Trileptal] 150 mg PO BID 07/10/16 Aspirin [Donte Low Dose] 81 mg PO DAILY 07/30/16 ALPRAZolam [Xanax] 0.25 mg PO BID PRN #10 tab 09/22/16 Additional Instructions: Continue with Afrin 2 sprays each nostril AM/PM for nasal congestion 3 days on 3 days off as needed
--- NOTE | 2017-03-06 22:54 | RAD ---
EXAM DESCRIPTION: Chest,1 View CLINICAL HISTORY: Dyspnea COMPARISON: 10/11/2016 FINDINGS: Electronic cardiac device and leads are present. No pneumothorax. Cardiac silhouette is within normal limits. There is no focal parenchymal or pleural disease. Visualized osseous structures are within normal limits. IMPRESSION: No evidence of acute cardiopulmonary disease. Electronically signed by: Benjamin German 03/06/2017 10:52 PM [employer]
[2017-03-06] MEDS ORDERED: OXYMETAZOLINE NASAL SPRAY 15 ML BTTL BNAS PRN (23:09)
[2017-03-06] MEDS ORDERED: LEVALBUTEROL NEBS 1.25 MG/3 ML VIAL NEB ONE (23:09)
[2017-03-06] MEDS ORDERED: DEXAMETHASONE INJ 10 MG/ML VIAL IM ONE (23:09)
[2017-03-07 00:12] VITALS: BP 163/60; TEMP 99.5; O2SAT 100
== END 2017-03-07 00:13 | disposition home or self-care (01) ==
LOC: ER 21:59
DX: J06.9 Acute upper respiratory infection, unspecified (principal); B34.9 Viral infection, unspecified; J04.0 Acute laryngitis; R06.00 Dyspnea, unspecified; I25.2 Old myocardial infarction; I11.0 Hypertensive heart disease with heart failure; I50.9 Heart failure, unspecified; Z95.0 Presence of cardiac pacemaker; Z98.61 Coronary angioplasty status; Z79.82 Long term (current) use of aspirin
CPT/HCPCS: 36415; 71010; 80048; 80076; 82550; 82553; 83880; 84484; 85025; 85379; 85610; 85730; 87070; 87502; 87651; 93005; 94640; J1100; J7614

== ENCOUNTER → 2017-03-20 | Outpatient (CLI) | payer MEDICARE, OTHER | END | disposition home or self-care (01) | LOC: MAMMO 11:00 | PROVIDERS: ATTEND Family Medicine | DX: N64.89 Other specified disorders of breast (principal) | CPT/HCPCS: 77066; G0279 ==

== ENCOUNTER 2017-04-08 19:44 | Emergency (ER) | payer MEDICARE, OTHER ==
--- NOTE | 2017-04-08 20:12 | ED.PDOC ---
History of Present Illness - General Chief Complaint: Respiratory Problem Stated Complaint: wheezing, short of breath Time Seen by Provider: 04/08/17 20:11 Source: patient Exam Limitations: no limitations - History of Present Illness Initial Comments: Agnes Abdi 72 y/o female cmae to ER stating had sudden onset of dizziness felt like she was spinning around then followed by sharp substernal chest pains when taking deep breaths.Had history of cardiac stent placement x1 in September 2016 followed by pacemaker in 2016. Stated dizzy feeling starting to subside. Timing/Duration: 1-3 hours Severity: moderate Improving Factors: nothing Worsening Factors: nothing Associated Symptoms: other - see hpi Allergies/Adverse Reactions: Allergies NO KNOWN ALLERGY Allergy (Verified 09/14/16 13:07) Home Medications: Ambulatory Orders Atorvastatin Calcium [Lipitor] 10 mg PO QPM 01/13/14 Lisinopril 10 mg PO DAILY@0700 08/23/15 Levetiracetam [Keppra] 500 mg PO BID 04/26/16 Oxcarbazepine [Trileptal] 150 mg PO BID 07/10/16 Aspirin [Donte Low Dose] 81 mg PO DAILY 07/30/16 Clopidogrel Bisulfate [Plavix] 75 mg PO 04/08/17 Review of Systems - Review of Systems Constitutional: States: no symptoms reported EENTM: States: no symptoms reported Respiratory: States: see HPI Cardiology: States: see HPI Gastrointestinal/Abdominal: States: no symptoms reported Genitourinary: States: no symptoms reported Neurological: States: other - dizziness Past Medical History (General) - Patient Medical History Hx Seizures: Yes Hx Stroke: No Hx Dementia: No Hx Asthma: Yes Hx of COPD: No Hx Cardiac Disorders: Yes - [place] Hx Congestive Heart Failure: Yes Hx Pacemaker: Yes Hx Hypertension: Yes Hx Thyroid Disease: No Hx Diabetes: No Hx Gastroesophageal Reflux: No Hx Renal Disease: No Hx Cancer: No Hx of HIV: No Hx Hepatitis C: No Hx MRSA: No Hx Other PMH: Yes - [facility] Surgical History: pacemaker, other - cardiac stent,c- section - Vaccination History Hx Tetanus, Diphtheria Vaccination: No Hx Influenza Vaccination: Yes Hx Pneumococcal Vaccination: Yes - Social History Hx Tobacco Use: No Hx Chewing Tobacco Use: No Hx Alcohol Use: No Hx Substance Use: No Hx Substance Use Treatment: No Hx Depression: No Hx Physical Abuse: No Hx Emotional Abuse: No Hx Suspected Abuse: No - Female History Patient is a Female of Child Bearing Age (10 -59 yrs old): No Patient : No - Triage Comment ED Triage Comment: pain to sternal area when taking deep breath. Denies cough Family Medical History - Family History Daughter Living Status: Still Living Hx Family Asthma: No Hx Family Congestive Heart Failure: No Hx Family Hypertension: Yes Hx Family Stroke: No Hx Cardiac Disease: No Hx Family Diabetes: No Hx Family Cancer: Yes - liver, both brothers Hx Family;Other: Alzheimer's DEMENTIA Physical Exam - Physical Exam General Appearance: Alert, Comfortable, No apparent distress Eye Exam: bilateral normal Ears, Nose, Throat: hearing grossly normal, normal ENT inspection Neck: non-tender, full range of motion, supple Respiratory: chest non-tender, lungs clear, normal breath sounds, no respiratory distress Cardiovascular/Chest: normal peripheral pulses, regular rate, rhythm, no murmur Peripheral Pulses: radial,right: 2+, radial,left: 2+ Gastrointestinal/Abdominal: normal bowel sounds, non tender, soft Back Exam: normal inspection, no CVA tenderness Extremity: no pedal edema, no calf tenderness Neurologic: alert, oriented x 3 Skin Exam: normal color, warm/dry Progress - Progress Progress: 04/08/17 20:30 Last Vital Signs Temp 99.1 F 04/08/17 19:56 Pulse 95 H 04/08/17 20:06 Resp 22 04/08/17 20:06 BP 169/110 04/08/17 19:56 Pulse Ox 98 04/08/17 19:56 - Results/Orders Results/Orders: Laboratory Tests 04/08/17 04/08/17 04/08/17 20:27 20:27 20:54 WBC 6.7 RBC 4.77 Hgb 13.6 Hct 40.0 MCV 83.8 MCH 28.5 MCHC 34.1 RDW 14.2 Plt Count 233 MPV 8.1 Absolute Neuts (auto) 4.60 Absolute Lymphs (auto) 1.20 Absolute Monos (auto) 0.60 Absolute Eos (auto) 0.30 Absolute Basos (auto) 0.10 Neutrophils % 68.9 Lymphocytes % 17.7 L Monocytes % 8.6 Eosinophils % 3.8 Basophils % 1.0 PT 10.7 INR 0.950 PTT (SP) 28.4 D-Dimer, Quantitative 322 H* Sodium 139 Potassium 3.9 Chloride 106 Carbon Dioxide 22 Anion Gap 14.9 BUN 13 Creatinine 0.81 BUN/Creatinine Ratio 16.0 Random Glucose 147 H Serum Osmolality 280.3 Calcium 9.3 Magnesium 1.9 Total Bilirubin 0.3 Direct Bilirubin < 0.1 Indirect Bilirubin 0.2 AST 16 ALT 11 Alkaline Phosphatase 135 H Creatine Kinase 81 CK-MB (CK-2) 1.8 CK-MB (CK-2) % Not Reportable Troponin I 0.02 B-Natriuretic Peptide 103.0 H Serum Total Protein 6.8 Albumin 3.6 Urine Color Yellow Urine Appearance Clear Urine pH 6.5 Ur Specific [place] 1.015 Urine Protein Negative Urine Glucose (UA) Negative Urine Ketones Negative Urine Blood Negative Urine Nitrite Negative Urine Bilirubin Negative Urine Urobilinogen 0.2 Ur Leukocyte Esterase Negative Urine RBC 0 Urine WBC 0 Ur Epithelial Cells 0 Amorphous Sediment Trace Urine Bacteria 1+ 04/08/17 23:10 WBC RBC Hgb Hct MCV MCH MCHC RDW Plt Count MPV Absolute Neuts (auto) Absolute Lymphs (auto) Absolute Monos (auto) Absolute Eos (auto) Absolute Basos (auto) Neutrophils % Lymphocytes % Monocytes % Eosinophils % Basophils % PT INR PTT (SP) D-Dimer, Quantitative Sodium Potassium Chloride Carbon Dioxide Anion Gap BUN Creatinine BUN/Creatinine Ratio Random Glucose Serum Osmolality Calcium Magnesium Total Bilirubin Direct Bilirubin Indirect Bilirubin AST ALT Alkaline Phosphatase Creatine Kinase CK-MB (CK-2) CK-MB (CK-2) % Troponin I 0.07 H* B-Natriuretic Peptide Serum Total Protein Albumin Urine Color Urine Appearance Urine pH Ur Specific [place] Urine Protein Urine Glucose (UA) Urine Ketones Urine Blood Urine Nitrite Urine Bilirubin Urine Urobilinogen Ur Leukocyte Esterase Urine RBC Urine WBC Ur Epithelial Cells Amorphous Sediment Urine Bacteria - EKG/XRAY/CT EKG: Sinus, Tachy Comments: heart rate-101 XRAY: chest - no acute abnormalities noted Departure - Departure Clinical Impression: NSTEMI (non-ST elevated myocardial infarction), Dizziness, nonspecific, Cardiac pacemaker Time of Disposition: 01:10 Disposition: Transfer to Hospital Condition: Fair Departure Forms: Patient Portal Self Enrollment Referrals: Pawan Peña MD [Primary Care Provider] - 1-2 Weeks Home Medications: Ambulatory Orders Atorvastatin Calcium [Lipitor] 10 mg PO QPM 01/13/14 Lisinopril 10 mg PO DAILY@0700 08/23/15 Levetiracetam [Keppra] 500 mg PO BID 04/26/16 Oxcarbazepine [Trileptal] 150 mg PO BID 07/10/16 Aspirin [Donte Low Dose] 81 mg PO DAILY 07/30/16 Clopidogrel Bisulfate [Plavix] 75 mg PO 04/08/17 Transfer to Outside Facility - Transfer Information Accepting Provider:: Dr. Zuleta Accepting Facility: [facility] Reason for Transfer: cath lab tech
[2017-04-08] MEDS ORDERED: NITROGLYCERIN 0.4 MG 25 EA TAB SL ONE (20:29)
[2017-04-08] MEDS ORDERED: ASPIRIN (CHEWABLE) 81 MG TAB PO ONE (20:29)
--- NOTE | 2017-04-08 20:32 | RAD ---
Examination: XR CHEST 1 VIEW dated 04/08/2017 8:12 PM BAR TACKER History: sob Comparison: 03/06/2017 Technique: Frontal view of the chest Findings: The lungs are clear bilaterally. No pneumothorax or pleural effusion. Stable cardiac pacer and stable cardiac silhouette. Impression: No acute findings. Electronically signed by: Swapnil Chaidez MD 04/08/2017 8:31 PM BAR TACKER
[2017-04-09] MEDS ORDERED: ENOXAPARIN SODIUM 100 MG/ML SYG SUBCU ONE ×2
[2017-04-09] MEDS ORDERED: NITROGLYCERIN 0.4 MG 25 EA TAB SL ONE (00:52)
[2017-04-09 01:15] VITALS: BP 154/82; TEMP 98.1; O2SAT 96
== END 2017-04-09 01:32 | disposition short-term general hospital (02) ==
LOC: ER 19:44
DX: I21.4 Non-ST elevation (NSTEMI) myocardial infarction (principal); R42 Dizziness and giddiness; Z95.0 Presence of cardiac pacemaker; I25.2 Old myocardial infarction; I11.0 Hypertensive heart disease with heart failure; I50.9 Heart failure, unspecified; Z79.82 Long term (current) use of aspirin; Z79.02 Long term (current) use of antithrombotics/antiplatelets
CPT/HCPCS: 36415; 71045; 80048; 80076; 81001; 82550; 82553; 83880; 84484; 85025; 85379; 85610; 85730; 93005; J1650

== ENCOUNTER → 2017-06-12 | Outpatient (CLI) | payer MEDICARE, OTHER ==
--- NOTE | 2017-06-12 17:52 | CT ---
EXAM DESCRIPTION: Upper Extremity CLINICAL HISTORY: ARM PAIN, LIMB MUSCLE MASS COMPARISON: None Available. TECHNIQUE: Extremity CT of the left upper extremity is performed with thin-section axial imaging. MPRs are created and reviewed as well. 3-dimensional reconstructions created on a dedicated workstation were created and are also maintained in the patient's medical record. FINDINGS: Normal appearance of the muscles of the left upper extremity forearm with no bony abnormality of radius or ulna other than mild degenerative changes at the elbow and wrist. No IV contrast was given. No BB marker in the area of concern. This study is not marked right or left but the technologist confirms that this is the left upper extremity. No fluid collection in the region of the elbow. Normal contours of vessels and tendons. Three-D shaded surface display images of the bones of the forearm confirm mild degenerative changes at the elbow and wrist. IMPRESSION: Negative CT left forearm. This exam was performed according to our departmental dose-optimization program, which includes automated exposure control, adjustment of the mA and/or kV according to patient size and/or use of iterative reconstruction technique. Total DLP equals 168.15 mGycm. Electronically signed by: Dru Guerrreo MD 06/12/2017 5:51 PM CDT
== END | disposition home or self-care (01) ==
LOC: MRI 11:01
PROVIDERS: ATTEND Family Medicine
DX: M79.602 Pain in left arm (principal); R29.898 Other symptoms and signs involving the musculoskeletal system

== ENCOUNTER → 2017-07-18 | Outpatient (CLI) | payer MEDICARE, OTHER | LOC: GMAM 10:50 | PROVIDERS: ATTEND Family Medicine | DX: E53.8 Deficiency of other specified B group vitamins (principal); E55.9 Vitamin D deficiency, unspecified; R53.83 Other fatigue; D64.9 Anemia, unspecified ==

== ENCOUNTER 2017-07-29 14:12 | Emergency (ER) | payer MEDICARE, OTHER ==
[2017-07-29 14:31] VITALS: BP 127/80; TEMP 98.1; O2SAT 96
--- NOTE | 2017-07-29 14:31 | ED.PDOC ---
History of Present Illness - General Chief Complaint: Skin/Abrasion/Tear Stated Complaint: abrasion to leg Time Seen by Provider: 07/29/17 14:28 Source: patient Exam Limitations: no limitations - History of Present Illness Initial Comments: Agnes Abdi 72 y/o female stated that she accidentally came in contact on her right leg with weed eater causing her to have wound right leg. Timing/Duration: just prior to arrival Severity: mild Location: extremities - right leg Improving Factors: nothing Worsening Factors: nothing Associated Symptoms: other - see hpi Allergies/Adverse Reactions: Allergies NO KNOWN ALLERGY Allergy (Verified 09/14/16 13:07) Home Medications: Ambulatory Orders Atorvastatin Calcium [Lipitor] 10 mg PO QPM 01/13/14 Lisinopril 10 mg PO DAILY@0700 08/23/15 Levetiracetam [Keppra] 500 mg PO BID 04/26/16 Oxcarbazepine [Trileptal] 150 mg PO BID 07/10/16 Aspirin [Donte Low Dose] 81 mg PO DAILY 07/30/16 Clopidogrel Bisulfate [Plavix] 75 mg PO 04/08/17 Cephalexin 1,000 mg PO BID 7 Days #30 cap 07/29/17 Mupirocin 2 % Oint [Bactroban Oint] 22 gm TOP BID 10 Days #1 tube 07/29/17 Review of Systems - Review of Systems Constitutional: States: no symptoms reported EENTM: States: no symptoms reported Respiratory: States: no symptoms reported Cardiology: States: no symptoms reported Neurological: States: see HPI All other Systems: Reviewed and Negative, No Change from Baseline Past Medical History (General) - Patient Medical History Hx Seizures: Yes Hx Stroke: No Hx Dementia: No Hx Asthma: Yes Hx of COPD: No Hx Cardiac Disorders: Yes - [place] Hx Congestive Heart Failure: Yes Hx Pacemaker: Yes Hx Hypertension: Yes Hx Thyroid Disease: No Hx Diabetes: No Hx Gastroesophageal Reflux: No Hx Renal Disease: No Hx Cancer: No Hx of HIV: No Hx Hepatitis C: No Hx MRSA: No Surgical History: pacemaker, other - ,cardiac stent - Vaccination History Hx Tetanus, Diphtheria Vaccination: No Hx Influenza Vaccination: Yes Hx Pneumococcal Vaccination: Yes - Social History Hx Tobacco Use: No Hx Chewing Tobacco Use: No Hx Alcohol Use: No Hx Substance Use: No Hx Substance Use Treatment: No Hx Depression: No Hx Physical Abuse: No Hx Emotional Abuse: No Hx Suspected Abuse: No - Female History Patient : No Family Medical History - Family History Daughter Living Status: Still Living Hx Family Asthma: No Hx Family Congestive Heart Failure: No Hx Family Hypertension: Yes Hx Family Stroke: No Hx Cardiac Disease: No Hx Family Diabetes: No Hx Family Cancer: Yes - liver, both brothers Hx Family;Other: Alzheimer's DEMENTIA Physical Exam - Physical Exam General Appearance: Alert, Comfortable, No apparent distress Eyes, Ears, Nose, Throat Exam: normal ENT inspection Neck: non-tender, full range of motion, supple Cardiovascular/Chest: regular rate, rhythm, no murmur Respiratory: lungs clear, normal breath sounds Gastrointestinal/Abdominal: normal bowel sounds, non tender, soft, no organomegaly Back Exam: normal inspection, no CVA tenderness Extremity: non-tender, no calf tenderness Neurologic: alert, normal mood/affect Skin Exam: warm/dry, normal color Skin Problem Location: lower extremities - right leg Skin Character: other - linear skin abrasion no active bleeding 4 cm x 4 cm. Progress - Progress Progress: 07/29/17 14:37 Vital Signs - 8 hr 07/29/17 14:27 Temperature 98.1 F Pulse Rate [ 91 H Right Brachial] Respiratory 20 Rate Blood Pressure 127/80 [Right Arm] O2 Sat by Pulse 96 Oximetry 07/29/17 14:41 Wound cleanse with hibiclens applied neosporin and covered with sterile dressing. Departure - Departure Clinical Impression: Abrasion, leg without infection Time of Disposition: 14:39 Disposition: Discharge to Home or Self Care Departure Forms: ED Discharge - Pt. Copy, Patient Portal Self Enrollment Instructions: DI for Abrasion Referrals: Pawan Peña MD [Primary Care Provider] - 1-2 Weeks Prescriptions: Cephalexin 1,000 mg PO BID 7 Days #30 cap Mupirocin 2 % Oint [Bactroban Oint] 22 gm TOP BID 10 Days #1 tube Home Medications: Ambulatory Orders Atorvastatin Calcium [Lipitor] 10 mg PO QPM 01/13/14 Lisinopril 10 mg PO DAILY@0700 08/23/15 Levetiracetam [Keppra] 500 mg PO BID 04/26/16 Oxcarbazepine [Trileptal] 150 mg PO BID 07/10/16 Aspirin [Donte Low Dose] 81 mg PO DAILY 07/30/16 Clopidogrel Bisulfate [Plavix] 75 mg PO 04/08/17 Cephalexin 1,000 mg PO BID 7 Days #30 cap 07/29/17 Mupirocin 2 % Oint [Bactroban Oint] 22 gm TOP BID 10 Days #1 tube 07/29/17
[2017-07-29] MEDS ORDERED: NEOMYCIN-BACITRACIN-POLYMYXIN 0.9 GM UD TOP ONE (14:33)
[2017-07-29] MEDS ORDERED: CHLORHEXIDINE GLUCONATE 4 % 15 ML UD TOP ONE (14:33)
[2017-07-29] MEDS ORDERED: TETANUS,DIPHTHERIA,PERTUSSIS 1 EA SYG IM ONE (14:37)
== END 2017-07-29 15:05 | disposition home or self-care (01) ==
LOC: ER 14:12
DX: S80.811A Abrasion, right lower leg, initial encounter (principal); Z23 Encounter for immunization; I25.2 Old myocardial infarction; I11.0 Hypertensive heart disease with heart failure; I50.9 Heart failure, unspecified; J45.909 Unspecified asthma, uncomplicated; Z95.0 Presence of cardiac pacemaker; Z98.61 Coronary angioplasty status; Z79.82 Long term (current) use of aspirin; Z79.02 Long term (current) use of antithrombotics/antiplatelets; W29.8XXA Contact with other powered hand tools and household machinery, initial encounter

== ENCOUNTER → 2017-08-21 | Outpatient (CLI) | payer MEDICARE, OTHER ==
--- NOTE | 2017-08-21 13:15 | CT ---
CT arthrogram left knee INDICATION: Knee pain pacemaker contraindicating MRI TECHNIQUE: Helical CT images left knee following single contrast arthrogram with multiplanar reformats This exam was performed according to our departmental dose-optimization program, which includes automated exposure control, adjustment of the mA and/or kV according to patient size and/or use of iterative reconstruction technique. FINDINGS: Multifocal grade 2-3 chondral fissuring throughout the patella. Grade 3 chondral fissuring midline trochlea. Minimal lateral patellar tracking. Expected filling defects related to the ACL and PCL are noted. There is a prominent quadricep enthesophyte. Minimal patellar enthesophyte formation. No major meniscal volume loss. Several grade 2-3 chondral fissures are noted in the lateral tibial plateau on the coronal images. No acute fracture or aggressive destructive process. Mild cystic change/resorption posterior high medial femoral condyle in the area of avulsive cortical irregularity at the attachment of the medial head gastrocnemius. No evidence of extensor tendon disruption. IMPRESSION: Multifocal chondrosis throughout the knee indicating mild osteoarthrosis Tug lesion with cystic change high posterior aspect medial femoral condyle. No major meniscal defect or evidence of stabilizing ligament or tendon rupture Electronically signed by: Jose Sheets MD 08/21/2017 1:13 PM CDT
--- NOTE | 2017-08-21 14:56 | RAD ---
EXAM DESCRIPTION: ARTHROGRAM KNEE, LEFT : radio- fluoroscopy. CLINICAL HISTORY: KNEE PAIN. Left. COMPARISON: Post arthrogram CT scan of the right knee. TECHNIQUE: The procedure was explained to the patient with risks and benefits. The patient understood and gave verbal and written consent. 5 cc non-ionic contrast in one syringe; mixture of 10 cc nonionic contrast and 10 cc 1% xylocaine, in a 2nd syringe. The patient is supine on the fluoroscopic table. Left knee in neutral rotation, with slight flexion. The lateral tibial plateau left knee was localized by fluoroscopy and the skin overlying the tibial spine was marked and prepped with Betadine and sterile drape. Topical anesthetic was given sub-cutaneously and intradermally. Under fluoroscopic visualization, a 1.5 inch, 25-gauge needle was introduced into the left medial patellofemoral joint space, until the trochlear groove was contacted. A test injection of 2 cc of the contrast was done under fluoroscopic visualization. An additional 15 cc of the contrast mixture was injected under fluoroscopy. The patient performed active exercise to distribute the contrast. The patient was transferred to the CT suite. There were no immediate complications. Total fluoroscopy time was less than 1 minute. 2 anterior fluoroscopic images obtained. IMPRESSION: Successful, fluoroscopic-guided arthrography of the left knee prior to CT arthrography left knee. Permanent images from this procedure are maintained in the patient's medical record. Electronically signed by: Benjamin Jarrett MD 08/21/2017 2:54 PM CDT
== END ==
LOC: CT 11:00
PROVIDERS: ATTEND Family Medicine
DX: M25.562 Pain in left knee (principal)

== ENCOUNTER 2017-09-22 05:34 | Day surgery (SDC) | payer MEDICARE, OTHER ==
[2017-09-22] MEDS ORDERED: PROPARACAINE 0.5% OPHTH SOL 15 ML BTTL ONE (05:56)
[2017-09-22] MEDS ORDERED: TROP 1%/CYCLOPEN 1%/PHENYL 2% DROPS ONE (05:56)
[2017-09-22] MEDS ORDERED: TOBRAMYCIN SULF 0.3 % OPHT SOL 1 DROP ONE (07:00)
== END 2017-09-22 11:40 | disposition home or self-care (01) ==
LOC: AMB 05:34
PROVIDERS: ATTEND Ophthalmology
DX: H26.492 Other secondary cataract, left eye (principal)

== ENCOUNTER 2017-10-06 06:12 | Day surgery (SDC) | payer MEDICARE, OTHER ==
[2017-10-06] MEDS ORDERED: TOBRAMYCIN SULF 0.3 % OPHT SOL 1 DROP OPHTH ONE (08:00)
[2017-10-06] MEDS ORDERED: TROP 1%/CYCLOPEN 1%/PHENYL 2% DROPS ONE (10:13)
[2017-10-06] MEDS ORDERED: PROPARACAINE 0.5% OPHTH SOL 15 ML BTTL ONE (10:13)
== END 2017-10-06 11:57 | disposition home or self-care (01) ==
LOC: AMB 06:12
PROVIDERS: ATTEND Ophthalmology
DX: H26.491 Other secondary cataract, right eye (principal)

== ENCOUNTER → 2018-10-01 | Outpatient (CLI) | payer MEDICARE, OTHER ==
--- NOTE | 2018-10-01 11:35 | CT ---
EXAM DESCRIPTION: Lumbar Spine CLINICAL HISTORY: 73 years Female, SPINAL STENOSIS LUMBAR REGION TECHNIQUE: Multislice CT of the lumbar spine was obtained with multiplanar reconstruction. No intravenous contrast. This exam was performed according to our departmental dose-optimization program, which includes automated exposure control, adjustment of the mA and/or kV according to patient size and/or use of iterative reconstruction technique. COMPARISON: CT lumbar spine 01/17/2017. FINDINGS: Conventional five nonrib-bearing lumbar segments. There is unchanged grade 1 anterolisthesis of L3 on L4 (approximately 3 mm). The lumbar spine alignment is intact otherwise intact. The vertebral body heights are relatively maintained. No displaced fracture or significantly appearing subluxation is seen. Intraosseous hemangioma at L2 is unchanged. Multilevel degenerative changes with intervertebral disc height loss, endplate sclerosis and marginal osteophyte are most pronounced at 102, L2-L3, and L3-L4.. T12-L1: No high-grade bony canal stenosis or neural foraminal narrowing. L1-2: No high-grade bony canal stenosis. Mild to moderate right osseous neural foraminal narrowing. L2-3:No high-grade bony canal stenosis. Mild to moderate right osseous neural foraminal narrowing. L3-4: Posterior disc osteophyte complex and bilateral facet hypertrophy results in mild central canal stenosis and moderate left osseous neuroforaminal narrowing. L4-5: Posterior disc bulge with ligamentum flavum thickening and bilateral facet arthrosis in addition to 9 x 5 mm well-corticated osseous fragment along the right lateral recess (possibly representing focal ossification of the ligamenta flava, versus calcified disc fragment/calcified meningioma) appears unchanged and results in severe central canal stenosis and mild to moderate bilateral neuroforaminal narrowing. L5-S1: Small posterior disc bulge mild bilateral facet arthrosis with no significant central canal stenosis and at least mild bilateral neuroforaminal narrowing. Unchanged left renal cortical cysts and superior pole calyceal stone (approximately two mm) IMPRESSION: 1. Mild progression of multilevel lumbar spine degenerative changes with compared to prior study dated 01/17/2017. 2. At L4-L5 redemonstration of a 9 x 5 mm well-corticated osseous fragment along the right lateral recess (in addition to ligamentum flavum thickening and bulky bilateral facet arthropathy) results in severe central canal stenosis. 2. Other levels as noted above. Electronically signed by: Rah Morin DO 10/01/2018 11:33 AM CDT
== END ==
LOC: CT 10:00
PROVIDERS: ATTEND Family Medicine
DX: M48.061 Spinal stenosis, lumbar region without neurogenic claudication (principal); M51.36 Other intervertebral disc degeneration, lumbar region

== ENCOUNTER → 2018-10-05 | Outpatient (CLI) | payer MEDICARE, OTHER | LOC: GMAM 18:07 | PROVIDERS: ATTEND Family Medicine | DX: D64.9 Anemia, unspecified (principal) ==

== ENCOUNTER → 2019-03-26 | Outpatient (CLI) | payer MEDICARE, OTHER ==
--- NOTE | 2019-03-30 17:15 | MAM ---
EXAM DESCRIPTION: 3D Screening BILATERAL : Digital Mammography. CLINICAL HISTORY: 74 years Female ANNUAL SCREENING . No complaints. Benign left breast biopsy. No personal or family history of breast cancer. Menarche age 12. Childbirth age 18. Menopause age unknown. No HRT. Lifetime risk of developing breast cancer (Tyrer-Cuzick model)(%): 2.8. COMPARISON: Bilateral diagnostic digital breast tomosynthesis March 2017 and diagnostic left breast 2-D mammography and ultrasound June 2016.. TECHNIQUE: Bilateral CC and MLO projection full-field images, digital tomosynthesis mammographic technique. Bilateral digital 2-D full-field MLO images. CAD available for 2-D images. FINDINGS: The breast parenchymal density pattern is: Scattered areas of fibroglandular density. No skin thickening or nipple retraction. Bilateral vascular calcifications. Bilateral axillary lymph nodes. Intramammary bilateral lymph nodes. No new focal, stellate mass or density, focal asymmetry , and no suspicious microcalcifications bilaterally. Stable mammograms compared to prior study. Taking into account, differences in mammographic technique. IMPRESSION: Benign exam. BIRAD CATEGORY: 2 BENIGN FINDINGS. RECOMMENDATIONS: FOLLOW UP: Routine digital bilateral mammographic screening, one year interval from March 2019. Written communication explaining the IMPRESSION and follow-up, will be mailed to the patient and referring health care provider. According to the [employer], yearly mammograms are recommended starting at age 40 and continuing as long as a woman is in good health. Any breast change noted on a breast self-exam should be reported promptly to the patient's healthcare provider. Breast MRI is recommended for women with an approximately 20-25% or greater lifetime risk of breast cancer, including women with a strong family history of breast or ovarian cancer and women who have been treated for Hodgkin's disease. A negative mammographic report should not delay tissue diagnosis in patients with significant clinical history or physical findings. Extremely dense breast tissue limits the sensitivity of digital mammography. Electronically signed by: Benjamin Jarrett MD 03/30/2019 5:13 PM COUPON MANIFEST CLERK
== END ==
LOC: MAMMO 13:46
PROVIDERS: ATTEND Family Medicine
DX: Z12.31 Encounter for screening mammogram for malignant neoplasm of breast (principal)

== ENCOUNTER → 2019-07-13 | Outpatient (CLI) | payer MEDICARE, OTHER | LOC: GMAM 15:31 | PROVIDERS: ATTEND Family Medicine | DX: G31.84 Mild cognitive impairment of uncertain or unknown etiology (principal); E55.9 Vitamin D deficiency, unspecified; I10 Essential (primary) hypertension ==

== ENCOUNTER → 2019-07-20 | Outpatient (CLI) | payer MEDICARE, OTHER ==
--- NOTE | 2019-07-20 15:41 | CT ---
EXAM DESCRIPTION: Head w/wo Contrast: Computed Tomography. CLINICAL HISTORY: MILD COGNITIVE IMPAIRMENT COMPARISON: CT scan of the head March 2016. TECHNIQUE: Spiral -axial scans through the head and brain at 2.5 x 20 mm intervals, without and with nonionic IV contrast. Coronal and sagittal 2.0 mm reconstructions. No adverse reactions. Total Exam DLP: 1505 mGy-cm. This exam was performed according to our departmental CT dose-optimization program which includes automated exposure control, adjustment of the mA and/or kV according to patient size and/or use of iterative reconstruction technique; to reduce radiation dose to as low as reasonably achievable (ALARA). FINDINGS: No hemorrhage. No mass-effect and no midline shift. Normal contrast enhancement. Normal byrne-white matter differentiation. No abnormal radiodense material in the brain parenchyma.Vascular calcifications anterior and posterior circulations; physiologic calcifications in the pineal gland and choroid plexus. No effacement or displacement of the ventricles, CSF spaces, or subdural spaces. Normal contrast enhancement. No extra axial fluid collection or hemorrhage. No gross abnormalities of the bony calvarium. No unusual enhancement in the [place]. IMPRESSION: 1. No hemorrhage. No mass effect or midline and shift.. No extra-axial hemorrhage or abnormal fluid. Cortical atrophy physiologic for patient's age. No significant progression since the prior CT scan March 2016. 2. CT scans are insensitive for detecting small CVA's in the first 24 hours after onset. Evaluation of the brain stem is also limited. If symptoms persist, consider MRI scan of the brain with diffusion imaging. Electronically signed by: Benjamin Jarrett MD 07/20/2019 3:40 PM CDT
== END ==
LOC: CT 13:45
PROVIDERS: ATTEND Family Medicine
DX: G31.84 Mild cognitive impairment of uncertain or unknown etiology (principal)

== ENCOUNTER → 2019-07-23 | Outpatient (CLI) | payer MEDICARE, OTHER | LOC: GMAM 11:45 | PROVIDERS: ATTEND Family Medicine | DX: G31.84 Mild cognitive impairment of uncertain or unknown etiology (principal) ==

== ENCOUNTER 2019-08-12 21:30 | Observation (INO) | payer MEDICARE, OTHER ==
--- NOTE | 2019-08-12 22:23 | ED.PDOC ---
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 Denies misses any BP doses recently. 1 hour ago started to have epigastric/lower midsternal dull ache, constant, improved but still present, no radiation. Denies f/c, cough, congestion, sore throat, body aches, COVID exposure, n/v/d, diaphoresis, SOB, weakness, numbness, urinary sx. Allergies/Adverse Reactions: Allergies NO KNOWN ALLERGY Allergy (Verified 09/14/16 13:07) Home Medications: Ambulatory Orders Atorvastatin Calcium [Lipitor] 10 mg PO QPM 01/13/14 Lisinopril 10 mg PO DAILY@0700 08/23/15 Levetiracetam [Keppra] 500 mg PO BID 04/26/16 Oxcarbazepine [Trileptal] 150 mg PO BID 07/10/16 Aspirin [Donte Low Dose] 81 mg PO DAILY 07/30/16 Clopidogrel Bisulfate [Plavix] 75 mg PO 04/08/17 Mupirocin 2 % Oint [Bactroban Oint] 22 gm TOP BID 10 Days #1 tube 07/29/17 ALPRAZolam [Xanax] 0.25 mg PO PRN 08/12/19 Meclizine HCl [Meclizine 25] 25 mg PO DAILY 08/12/19 Metoprolol Succinate [Metoprolol Succinate ER] 50 mg PO 08/12/19 Nitroglycerin [Nitrostat] 1 ea SL PRN 08/12/19 Review of Systems - Review of Systems Constitutional: States: other - high BP. Denies: chills, fever EENTM: Denies: nose congestion, throat pain Respiratory: Denies: cough, short of breath, stridor, wheezing Cardiology: States: chest pain. Denies: edema, palpitations, syncope Gastrointestinal/Abdominal: States: abdominal pain. Denies: constipation, diarrhea, nausea, vomiting Genitourinary: Denies: dysuria, frequency, hematuria Musculoskeletal: Denies: back pain, neck pain Skin: Denies: lesions, rash Neurological: Denies: headache, numbness, weakness Endocrine: Denies: increased thirst, increased urine Hematologic/Lymphatic: Denies: easy bleeding, easy bruising Past Medical History (General) - Patient Medical History Hx Seizures: No Hx Stroke: No Hx Dementia: No Hx Asthma: Yes Hx of COPD: No Hx Cardiac Disorders: No Hx Congestive Heart Failure: No Hx Pacemaker: No Hx Hypertension: Yes Hx Thyroid Disease: No Hx Diabetes: No Hx Gastroesophageal Reflux: No Hx Renal Disease: No Hx Cancer: No Hx of HIV: No Hx Hepatitis C: No Hx MRSA: No Surgical History: Hysterectomy - Vaccination History Hx Tetanus, Diphtheria Vaccination: No Hx Influenza Vaccination: No Hx Pneumococcal Vaccination: Yes Immunizations Up to Date: No - Social History Hx Tobacco Use: No Hx Chewing Tobacco Use: No Hx Alcohol Use: No Hx Substance Use: No Hx Substance Use Treatment: No Hx Depression: No Feels Threatened In Home Enviroment: No Feels Threatened In a Relationship: No Hx Physical Abuse: No Hx Emotional Abuse: No Hx Suspected Abuse: No - Activities of Daily Living Hospice Agency (if applicable):: None - Female History Patient is a Female of Child Bearing Age (10 -59 yrs old): No Patient : No Family Medical History - Family History Daughter Living Status: Still Living Hx Family Asthma: No Hx Family Congestive Heart Failure: No Hx Family Hypertension: Yes Hx Family Stroke: No Hx Cardiac Disease: No Hx Family Diabetes: No Hx Family Cancer: Yes - liver, both brothers Hx Family;Other: Alzheimer's DEMENTIA Physical Exam - Physical Exam General Appearance: Alert, Comfortable, No apparent distress, Well Developed, Well Nourished, Other - Laughing with student advisor Eyes, Ears, Nose, Throat Exam: normal ENT inspection Neck: full range of motion, supple Respiratory: chest non-tender, lungs clear, normal breath sounds, no respiratory distress, no accessory muscle use Cardiovascular/Chest: normal peripheral pulses, regular rate, rhythm, no edema, no gallop, no JVD, no murmur Peripheral Pulses: radial,right: 2+, radial,left: 2+ Gastrointestinal/Abdominal: non tender, soft, no organomegaly, no pulsatile mass, other - No distention, guarding, rebound Extremity: normal range of motion, non-tender, normal inspection, no pedal edema, no calf tenderness, normal capillary refill Neurologic: no motor/sensory deficits, alert, normal mood/affect, oriented x 3 Skin Exam: normal color, warm/dry Progress - Progress Progress: 08/12/19 23:00 BP improved after nitro, pain resolved, BP 120's systolic. Discussed with pt need for admission, pt agrees with plan of care. All questions and concerns addressed. Subsequently discussed with Mirna Alicia, admitting midlevel, accepts pt for admission when repeat trop in wnl. 08/13/19 00:54 Repeat trop neg. Beth Holman MD Emergency Medicine Physician Billing Number [id number] - Results/Orders Results/Orders: 08/12/19 22:15 EKG STAT 08/12/19 22:59 ED Intent to Admit Routine Laboratory Results - last 24 hr 08/12/19 08/12/19 08/12/19 22:20 22:25 22:25 WBC 8.2 RBC 4.48 Hgb 13.1 Hct 38.8 MCV 86.5 MCH 29.2 MCHC 33.7 RDW 14.2 Plt Count 217 MPV 8.0 Absolute Neuts (auto) 4.90 Absolute Lymphs (auto) 2.10 Absolute Monos (auto) 0.90 H Absolute Eos (auto) 0.40 Absolute Basos (auto) 0.10 Neutrophils % 58.9 Lymphocytes % 25.0 Monocytes % 10.5 H Eosinophils % 4.8 Basophils % 0.8 Sodium 140 Potassium 3.6 Chloride 108 Carbon Dioxide 25 Anion Gap 10.6 L BUN 17 Creatinine 0.79 BUN/Creatinine Ratio 21.5 H Random Glucose 107 H Serum Osmolality 281.4 Calcium 8.8 Total Bilirubin 0.5 AST 19 ALT 14 Alkaline Phosphatase 149 H Troponin I Serum Total Protein 7.0 Albumin 3.9 Globulin 3.1 Albumin/Globulin Ratio 1.3 Lipase 41 08/12/19 22:25 WBC RBC Hgb Hct MCV MCH MCHC RDW Plt Count MPV Absolute Neuts (auto) Absolute Lymphs (auto) Absolute Monos (auto) Absolute Eos (auto) Absolute Basos (auto) Neutrophils % Lymphocytes % Monocytes % Eosinophils % Basophils % Sodium Potassium Chloride Carbon Dioxide Anion Gap BUN Creatinine BUN/Creatinine Ratio Random Glucose Serum Osmolality Calcium Total Bilirubin AST ALT Alkaline Phosphatase Troponin I < 0.02 Serum Total Protein Albumin Globulin Albumin/Globulin Ratio Lipase CXR: EXAM: XR Chest, 1 View CLINICAL HISTORY: The patient is 74 years old and is Female; chest discomfort TECHNIQUE: Frontal view of the chest. COMPARISON: Chest radiograph April 08, 2017 FINDINGS: LIMITATIONS: Suboptimal study secondary to artifact related to patient body habitus. LUNGS: There are low lung volumes. No obvious lobar consolidation. PLEURAL SPACE: Unremarkable. No pneumothorax. HEART: Unremarkable. No cardiomegaly. MEDIASTINUM: Unremarkable. BONES/JOINTS: Unremarkable. TUBES, LINES AND DEVICES: Left-sided pacemaker is present. IMPRESSION: No acute findings in the chest. Electronically signed by: Belkis Land MD 08/12/2019 10:39 PM CDT Vital Signs - 24 hr 08/12/19 08/12/19 08/12/19 21:30 21:50 22:30 Temperature 99 F Pulse Rate 78 72 Pulse Rate [ 83 79 72 monitor] Respiratory 16 18 Rate Blood Pressure 186/92 166/82 [Left Arm] O2 Sat by Pulse 95 95 Oximetry - EKG/XRAY/CT Comments: Rate of 79, ventricularly paced Departure - Departure Clinical Impression: Hypertensive urgency Chest pain Qualifiers: Chest pain type: unspecified Qualified Code(s): R07.9 - Chest pain, unspecified Time of Disposition: 23:00 Disposition: Admit Patient Condition: Fair Referrals: Pawan Peña MD [Primary Care Provider] - 1-2 Weeks Home Medications: Ambulatory Orders Atorvastatin Calcium [Lipitor] 10 mg PO QPM 01/13/14 Lisinopril 10 mg PO DAILY@0700 08/23/15 Levetiracetam [Keppra] 500 mg PO BID 04/26/16 Oxcarbazepine [Trileptal] 150 mg PO BID 07/10/16 Aspirin [Donte Low Dose] 81 mg PO DAILY 07/30/16 Clopidogrel Bisulfate [Plavix] 75 mg PO 04/08/17 Mupirocin 2 % Oint [Bactroban Oint] 22 gm TOP BID 10 Days #1 tube 07/29/17 ALPRAZolam [Xanax] 0.25 mg PO PRN 08/12/19 Meclizine HCl [Meclizine 25] 25 mg PO DAILY 08/12/19 Metoprolol Succinate [Metoprolol Succinate ER] 50 mg PO 08/12/19 Nitroglycerin [Nitrostat] 1 ea SL PRN 08/12/19
[2019-08-12] MEDS ORDERED: NITROGLYCERIN 0.4 MG 25 EA TAB SL ONE (22:25)
--- NOTE | 2019-08-12 22:40 | RAD ---
EXAM: XR Chest, 1 View CLINICAL HISTORY: The patient is 74 years old and is Female; chest discomfort TECHNIQUE: Frontal view of the chest. COMPARISON: Chest radiograph April 08, 2017 FINDINGS: LIMITATIONS: Suboptimal study secondary to artifact related to patient body habitus. LUNGS: There are low lung volumes. No obvious lobar consolidation. PLEURAL SPACE: Unremarkable. No pneumothorax. HEART: Unremarkable. No cardiomegaly. MEDIASTINUM: Unremarkable. BONES/JOINTS: Unremarkable. TUBES, LINES AND DEVICES: Left-sided pacemaker is present. IMPRESSION: No acute findings in the chest. Electronically signed by: Belkis Land MD 08/12/2019 10:39 PM CDT
[2019-08-12] MEDS ORDERED: ASPIRIN (CHEWABLE) 81 MG TAB PO ONE (22:58)
[2019-08-13] MEDS ORDERED: SODIUM CHLORIDE 0.9% 1000ML 1,000 ML IVS ONE (01:05)
[2019-08-13] MEDS ORDERED: SODIUM CHLORIDE 0.9% (FLUSH) 10 ML SYG IV PRN (01:10)
[2019-08-13] MEDS ORDERED: NITROGLYCERIN 0.4 MG 25 EA TAB SL PRN (01:10)
[2019-08-13] MEDS ORDERED: ACETAMINOPHEN 325 MG TAB PO PRN (01:10)
[2019-08-13] MEDS ORDERED: MORPHINE SULFATE INJ 10 MG/ML VIAL IV PRN (01:10)
[2019-08-13] MEDS ORDERED: IV SET AND CAP CHANGE INJ INJ SCH (01:30)
[2019-08-13] MEDS ORDERED: PANTOPRAZOLE SODIUM IV 40 MG VIAL IV SCH (06:30)
[2019-08-13] MEDS ORDERED: ENOXAPARIN SODIUM 40 MG/0.4 ML SYG SUBCU SCH (09:00)
[2019-08-13] MEDS ORDERED: SODIUM CHLORIDE 0.9% (FLUSH) 10 ML SYG IV SCH (09:00)
[2019-08-13 09:49] VITALS: BP 124/69; TEMP 98; O2SAT 94
[2019-08-14] MEDS ORDERED: ASPIRIN TABLET 325 MG TAB PO SCH (09:00)
--- NOTE | 2019-08-15 14:02 | SSS ---
SUPERVISING PHYSICIAN: Roberto Márquez MD ADMISSION DIAGNOSES: 1. Chest pain. 2. Hypertension with hypertensive urgency. DISCHARGE DIAGNOSES: 1. Chest pain with no acute findings on EKG with patient showing a paced rhythm but cardiac enzymes being negative. Patient had no reported chest pains. 2. Hypertension, poorly controlled, with initial hypertensive urgency resolved with medication. 3. History of coronary artery disease with previous stent placement in 2017. 4. Chronic back pain. 5. Osteopenia. 6. History of seizure disorders. 7. Iron-deficiency anemia, chronic. HISTORY OF PRESENT ILLNESS: Ms. Suero is a 74 year-old female patient who presented to the Emergency Room initially with elevated blood pressure, systolics 180s to 190s. She endorsed this had been increasing over the last several weeks. She was actually seen by her primary care physician, Dr. Peña, and was prescribed a new medication in the form of amlodipine which she had not yet picked up. She denied that she had missed any of her blood pressure medication. She endorsed the pain actually started an hour prior to presenting to the Emergency Department and noted more like epigastric, lower midsternal dull ache but denied any radiation. She denied any nausea or vomiting or diaphoresis or shortness of breath or any recent Covid exposure or recent travel outside [place]. In the Emergency Room, her actual blood pressure on admission was 186/92, She was given Nitro which did resolve her pain and her blood pressure decreased to 120s on systolic. Given the patient's history, she was placed in observation in stable condition for further rule out of acute coronary syndrome. Again, initial troponins x2 were less than 0.02 prior to placement in observation. Other labs were fairly unremarkable. CBC showed a normal white count without a left shift. 12-lead EKG showed a paced rhythm, 100%, ventricularly paced. PAST MEDICAL HISTORY: 1. Coronary artery disease with previous stent placement in 2017. 2. Hypertension. 3. Chronic back pain. 4. Osteopenia. 5. Osteoporosis. 6. Seizure disorder, followed by Dr. Hutchinson and diagnosed in 2016. 7. Iron-deficiency anemia diagnosed in [address] Schwartz with previous iron infusions. 8. Sleep apnea on CPAP. PAST SURGICAL HISTORY: 1. x1. 2. Bilateral cataract removal. 3. Coronary artery stent placement in 2017. 4. MRCA. 5. Carpal tunnel release bilaterally. 6. Right-sided breast biopsy. 7. Pacemaker implantation in 2017 with lead replacement in 2019. CURRENT MEDICATIONS: 1. Meclizine 25 mg daily. 2. Metoprolol 60 mg daily. 3. Xanax 0.25 mg as needed. 4. Trileptal 150 mg b.i.d. 5. Lisinopril 10 mg daily. 6. Keppra 500 mg b.i.d. 7. Plavix 75 mg daily. 8. Lipitor 10 mg daily. 9. Aspirin 81 mg daily. 10. Amlodipine 5 mg daily. ALLERGIES: Simvastatin. FAMILY HISTORY: Father in h is 80s, unknown. Mother at age 83 due to chronic obstructive pulmonary disease complications. She has one brother who is secondary to stomach cancer. She has one sister whose medical history is unknown. She has 7 half-siblings, one brother from hepatic carcinoma and one sister from complications of asthma and also had coronary artery disease in her 50s. Another sister has hypertension. SOCIAL HISTORY: The patient is retired. She is . She has never smoked tobacco and rarely drinks alcohol. REVIEW OF SYSTEMS: CONSTITUTIONAL: Denies general malaise, fevers, chills. HEENT: Denies headaches. vision changes, sore throat. nasal congestion, earaches. CHEST: Denies shortness of breath, wheezing or coughing. HEART: As noted in history of present illness. Chest pain and associated hypertension. Denies edema, palpitations or syncopal episodes. ABDOMEN: Denies nausea, vomiting, diarrhea or constipation or abdominal pain. GENITOURINARY: Denies dysuria, hematuria or polyuria. MUSCULOSKELETAL: Has chronic back pain but denies general arthralgias. SKIN: Denies lesions, rashes or unexplained changes. NEUROLOGIC: History of seizures but does not know when last seizure activity was. Denies headaches, numbness, weakness, ataxia or other neurological deficits. HEMATOLOGICAL: Denies unexplained bleeding, easy bruising or transfusion reactions. PHYSICAL EXAMINATION: VITAL SIGNS: In the Emergency Room, blood pressure was 186/92 with heart rate of 83, oxygen saturation 95% on room air, temperature 99. On discharge, blood pressure was 124/69, heart rate 72, temperature 98, oxygen saturation 94% with respirations of 16. GENERAL: The patient was resting comfortably, did not appear to be in any acute distress. She was alert. HEENT: Tympanic membranes clear bilaterally. Oropharynx pink and moist without any lesions. NECK: Supple, non-tender, full range of motion. No jugular venous distention. CHEST: Lung sounds clear to auscultation bilaterally without rhonchi, rales, or wheezes. CARDIOVASCULAR: Regular rate and rhythm without appreciable murmurs, rubs, or gallops. ABDOMEN: Obese, soft, non-tender, positive bowel sounds. EXTREMITIES: Without cyanosis, clubbing, or edema. NEUROLOGIC: She was alert and oriented x3. Cranial nerves II through XII were grossly intact. SKIN: Warm, pink and dry. LABORATORY: CBC on admission and discharge was showing within normal limits without a left shift with discharge white count at 6,500. Chemistries: she had 3 sets of troponin, all less than 0.02. Electrolytes were showing just a mildly low potassium at 3.5 on discharge, otherwise within normal limits. All liver functions were within normal limits. Lipid panel did show elevated triglycerides at 184, otherwise cholesterol was 164, LDL at 94, HDL at 38. Lipase was normal at 41. Blood sugar at 101. Magnesium 2.0. RADIOLOGY: Chest x-ray in the Emergency Room per radiology interpretation showed no acute findings. Review of her medical records showed her last echocardiogram was done in April of 2017 with an ejection fraction of 70%. 12-lead EKG in the Emergency Room showed a ventricular paced rhythm at 79. HOSPITAL COURSE: Ms. Suero was placed in observation due to her chest pain associated with hypertensive urgency. The patient had no recurrent of pain and was pain-free prior to admission. Her rhythm remained unchanged in a ventricular paced rhythm. Blood pressure was well controlled. She had no recurrence of any symptoms and it was felt she had done clinically and presented clinically stable to continue with outpatient management. Diagnoses is as noted above. PLAN: Ms. Suero was discharged. She is to followup with Dr. Peña in the following week after discharge as well as Cardiology and pebbly at some point needs to have a stress test done. 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 Peña for the amlodipine. She is to monitor her blood pressure at home at least once or twice a day and call Dr. Peña with any concerning numbers or if she has recurrence of the symptoms she certainly needs to report back to the Emergency Department for further evaluation. No new medications other than a refill for Nitro tablets were prescribed. All other medications as prescribed per her hospitalization were continued. Her diet will be low-fat, low-cholesterol. She is to increase activity as tolerated. No strenuous activity until cleared by Dr. Peña. CONDITION ON DISCHARGE: Stable and improved. DISPOSITION: Patient was discharged home to family members. #[id number] [facility]
== END 2019-08-13 12:25 | disposition home or self-care (01) ==
LOC: ER 21:30 → MS 08-13 00:57
PROVIDERS: ADMIT Nurse Practitioner Acute Care; ATTEND Nurse Practitioner Acute Care
DX: I16.0 Hypertensive urgency (principal); I10 Essential (primary) hypertension; R07.89 Other chest pain; I25.10 Atherosclerotic heart disease of native coronary artery without angina pectoris; E87.6 Hypokalemia; G89.29 Other chronic pain; M54.9 Dorsalgia, unspecified; M81.0 Age-related osteoporosis without current pathological fracture; G40.909 Epilepsy, unspecified, not intractable, without status epilepticus; D50.9 Iron deficiency anemia, unspecified; G47.30 Sleep apnea, unspecified; J45.909 Unspecified asthma, uncomplicated; Z95.5 Presence of coronary angioplasty implant and graft; Z95.0 Presence of cardiac pacemaker; Z99.89 Dependence on other enabling machines and devices; Z79.02 Long term (current) use of antithrombotics/antiplatelets; Z79.82 Long term (current) use of aspirin; Z79.899 Other long term (current) drug therapy; Z88.8 Allergy status to other drugs, medicaments and biological substances; Z82.49 Family history of ischemic heart disease and other diseases of the circulatory system

== ENCOUNTER → 2019-08-24 | Outpatient (CLI) | payer MEDICARE, OTHER ==
--- NOTE | 2019-08-24 11:49 | RAD ---
EXAM DESCRIPTION: Lumbar spine series CLINICAL HISTORY: SPONDYLOSISHTHESIS COMPARISON: CT of the lumbar spine dated 12 August 2019 TECHNIQUE: AP/lateral/ coned-down lateral/both obliques/flexion and extension FINDINGS: Calcific atherosclerotic changes observed in the distal abdominal aorta. Endplate degenerative changes are observed with loss of disc height particularly at the L1-2 L2-3 and L5-S1 levels. Minimal anterior subluxation of L3 on L4 is observed. There is no significant motion with flexion and extension. Minimal convexity of the lumbar spine to the left is observed. I see no evidence of spondylolysis. IMPRESSION: Diffuse degenerative changes are observed. There is minimal anterior subluxation of L 3 on L4 without abnormal motion with flexion and extension Electronically signed by: Nick Salgado MD 08/24/2019 11:47 AM CDT
== END ==
LOC: RAD 09:32
PROVIDERS: ATTEND Family Medicine Sports Medicine
DX: M43.17 Spondylolisthesis, lumbosacral region (principal); M51.36 Other intervertebral disc degeneration, lumbar region; M48.062 Spinal stenosis, lumbar region with neurogenic claudication; M47.896 Other spondylosis, lumbar region; M51.26 Other intervertebral disc displacement, lumbar region

== ENCOUNTER → 2020-02-14 | Outpatient (CLI) | payer MEDICARE, OTHER | LOC: GMAM 11:22 | PROVIDERS: ATTEND Family Medicine | DX: E53.8 Deficiency of other specified B group vitamins (principal); E55.9 Vitamin D deficiency, unspecified; R53.83 Other fatigue; I10 Essential (primary) hypertension; F44.5 Conversion disorder with seizures or convulsions; R30.0 Dysuria; D50.9 Iron deficiency anemia, unspecified ==